=== PATIENT | male | born 1955 ===

== ENCOUNTER 2017-10-09 03:08 | Inpatient (IN) | payer MEDICAID, MEDICARE ==
[2017-10-09 03:08] VITALS: PULSE 74
--- NOTE | 2017-10-09 03:14 | C.PDOC ---
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 No chest pain Time Seen by Provider: 10/09/17 03:13 History Per: EMS History/Exam Limitations: clinical condition Onset/Duration Of Symptoms: Hrs (4) Initiating Event: Other Quality: Dull Exacerbating Factor(s): Exertion Current Respiratory Medications: See Home Med List Severity: Severe Pain Scale Rating Of: 9 Associated Symptoms: Sweating, Anxiety. denies: Fever, Chills Reports Recently: Treated By A Physician Recent travel outside of the [place]: No Additional History Per: EMS, Family Past Medical History Reviewed: Historical Data, Nursing Documentation, Vital Signs Vital Signs: Last Vital Signs Temp Pulse 98 H 10/09/17 03:51 Resp 26 H 10/09/17 03:51 BP 153/75 H 10/09/17 03:51 Pulse Ox 100 10/09/17 03:59 - Medical History PMH: Atrial Fibrillation, Cardia Arrhythmia, Diabetes, HTN, Hypercholesterolemia Denies: Anemia, Arthritis, Asthma, Crohn's Disease, Diverticulitis, Emphysema , Fractures, Gastritis, Gall Bladder Disease, HIV, Hyperthyroidism, Hypothyroidism, Kidney Stones, Osteoporosis, Pancreatitis, Chronic Kidney Disease, Rheumatoid Arthritis, Sickle Cell Disease, Sexually Transmitted Disease Family History: States: No Known Family Hx - Social History Hx Tobacco Use: No Hx Alcohol Use: No Hx Substance Use: No - Immunization History Hx Tetanus Toxoid Vaccination: No Hx Influenza Vaccination: Yes Hx Pneumococcal Vaccination: No Review Of Systems Review Of Systems: ROS cannot be obtained secondary to pt's inabilty to answer questions. Physical Exam - Physical Exam Appears: In Acute Distress Skin: Diaphoretic, Pale Head: Normacephalic Eye(s): bilateral: Normal Inspection Oral Mucosa: Dry Neck: Supple Chest: Symmetrical Cardiovascular: Rhythm Regular Respiratory: Decreased Breath Sounds, Rales, Rhonchi, No Wheezing Gastrointestinal/Abdominal: Soft, No Tenderness, Distention Back: Normal Inspection Extremity: Pedal Edema (trace , r leg), Other (left bka) Extremity: Left: Other (bka) Pulses: Right Dorsalis Pedis: Normal Neurological/Psych: Slow To Respond With Command, Other (agitated, ) Gait: Unable To Assess ED Course And Treatment - Laboratory Results Result Diagrams: 10/09/17 03:29 10/09/17 03:29 ECG: Interpreted By Me, Viewed By Me ECG Rhythm: Atrial Fibrillation (104), ST/T Changes O2 Sat by Pulse Oximetry: 100 Pulse Ox Interpretation: Normal (on bipap) - Radiology CXR: Interpreted by Me, Viewed By Me CXR Interpretation: Yes: Cardiomegaly, Other (acute pulm edema, rul mass) Progress Note: 3:50 am changed bipap settings to 50%, 22 resp 14. 3:[address] leyva, icu, will come and see the pt in the ed. 4:35 AM Pt feels better. speaksandra hill 2-3 word sentences Critical Care Time - Critical Care Note Total Time (in mins): 30 Documented critical care: time excludes all time spent performing seperately billable procedures. Disposition Discussed With Dr.: Vincent Guajardo Jr. Comment: accepted the pt on his service and took over the care at 4:39AM Doctor Will See Patient In The: ED Counseled Patient/Family Regarding: Studies Performed, Diagnosis - Disposition Disposition: HOSPITALIZED Disposition Time: 03:14 Condition: CRITICAL - POA Present On Arrival: Poor Glycemic Control - Clinical Impression Clinical Impression: Respiratory distress, Diabetes mellitus, Atrial fibrillation, Acute pulmonary edema Decision To Admit - Pt Status Changed To: Hospital Disposition Of: Inpatient - Admit Certification Admit to Inpatient:: After my assessment, the patient will require hospitalization for at least two midnights. This is because of the severity of symptoms shown, intensity of services needed, and/or the medical risk in this patient being treated as an outpatient. - InPatient: Physician Admission Certification: I certify that this patient requires 2 or more midnights of care for the following reason:: After my assessment, the patient will require hospitalization for at least two midnights. This is because of the severity of symptoms shown, intensity of services needed, and/or the medical risk in this patient being treated as an outpatient. - . Bed Request Type: ICU Admitting Physician: Vincent Guajardo Jr. Patient Diagnosis: Respiratory distress, Diabetes mellitus, Atrial fibrillation, Acute pulmonary edema
[2017-10-09 03:15] VITALS: BMI 36.6
[2017-10-09] MEDS: Albuterol-Ipratrop 3 mg / 0.5 (3 ml) UD IH SCH (03:20)
[2017-10-09] MEDS ORDERED: Albuterol-Ipratrop 3 mg / 0.5 (3 ml) UD ONE (03:24)
[2017-10-09 03:36] LABS: BASO # 0.1 K/uL (0.0-0.2); BASO % 0.9 % (0.0-2.0); EOS # 0.4 K/uL (0.0-0.7); EOS % 3.4 % (0.0-4.0); LYMPH # 2.8 K/uL (1.0-4.3); LYMPH % 23.8 % (20.0-40.0); MEAN CELL VOLUME 88.1 fL (80.0-94.0); MEAN CORPUSCULAR HEMOGLOBIN 28.4 pg (27.0-31.0); MEAN CORPUSCULAR HGB CONC 32.2 g/dL (33.0-37.0); MEAN PLATELET VOLUME 7.8 fL (7.2-11.7); MONO # 0.9 K/uL (0.0-0.8); MONO % 7.9 % (0.0-10.0); NEUT # 7.6 K/uL (1.8-7.0); NRBC % 0.2 % (0.0-2.0); RBC 3.51 Mil/uL (4.40-5.90); RED CELL DISTRIBUTION WIDTH 15.5 % (11.5-14.5); WHITE BLOOD COUNT 11.8 K/uL (4.8-10.8)
[2017-10-09 03:40] LABS: PROTHROMBIN TIME 10.9 SECONDS (9.7-12.2)
[2017-10-09 03:45] LABS: ARTERIAL BLOOD GAS O2 SAT 98.3 % (95-98); ARTERIAL BLOOD GAS PCO2 73 mm/Hg (35-45); ARTERIAL BLOOD GAS PH 7.11 (7.35-7.45); ARTERIAL BLOOD GAS PO2 334 mm/Hg (80-100); ARTERIAL BLOOD GAS TCO2 25.4 mmol/L (22-28)
[2017-10-09 03:48] LABS: ALBUMIN 3.7 g/dL (3.5-5.0); ALT/SGPT 36 U/L (21-72); AST/SGOT 41 U/L (17-59); BLOOD UREA NITROGEN 25 mg/dL (9-20); CALCIUM 8.3 mg/dl (8.6-10.4); GFR AFRICAN-AMERICAN 53; GFR NON-AFRICAN AMERICAN 44
[2017-10-09 03:59] LABS: B-TYPE NATRIURETIC PEPTIDE 1840 pg/mL (0-900)
--- NOTE | 2017-10-09 05:04 | CP.PCM.CON ---
History of Present Illness - History of Present Illness History of Present Illness: 62 y/o male with h/o ?CAD,DM,HTN,Hyperlipidemia ,left BKA and atrial fibrillation brought to ER with c/o worsening difficulty breathing and mild chest discomfort since 8:00pm yesterday.In ER patient was placed on BIPAP with improvement in symptoms. History intubation about 6 months ago. Denies nausea,vomiting,diaphoresis,dizziness. c/o worsening right leg swelling x 2 days H/O abnormal stress test and Cardiac cath.patient / does not know results. history from patient and via produce assistant Review of Systems - Review of Systems Systems not reviewed;Unavailable: Respiratory Distress - Constitutional Constitutional: absent: Chills, Fever, Sleep Apnea, Weight Loss - EENT Eyes: absent: Blurred Vision, Pain Ears: absent: Decreased Hearing, Dizziness Nose/Mouth/Throat: absent: Nasal Congestion, Hoarsness, Sore Throat - Cardiovascular Cardiovascular: Chest Pain, Dyspnea, Edema. absent: Claudication, Diaphoresis - Respiratory Respiratory: Dyspnea, Snoring. absent: Cough - Gastrointestinal Gastrointestinal: Change in Bowel Habits. absent: Nausea, Vomiting - Genitourinary Genitourinary: absent: Dysuria, Hematuria - Musculoskeletal Additional comments: left BKA about 2 yrs ago - Integumentary Integumentary: absent: Rash, Sores - Neurological Neurological: absent: Dizziness, Weakness - Endocrine Endocrine: absent: Fatigue, Palpitations - Hematologic/Lymphatic Hematologic: absent: Easy Bleeding Past Patient History - Tetanus Immunizations Tetanus Immunization: Unknown - Past Medical History & Family History Past Medical History?: Yes - Past Social History Smoking Status: Former Smoker Drugs: Denies - CARDIAC Hx Atrial Fibrillation: Yes Hx Cardia Arrhythmia: Yes Hx Hypercholesterolemia: Yes Hx Hypertension: Yes - PULMONARY Hx Asthma: No Hx Emphysema: No - NEUROLOGICAL Hx Neurological Disorder: No - HEENT Hx HEENT Problems: No Hx Blind: No Hx Cataracts: No Hx Deafness: No Hx Difficulty Chewing: No Hx Epistaxis: No Hx Glaucoma: No Hx Macular Degeneration: No - RENAL Hx Chronic Kidney Disease: No Hx Kidney Stones: No - ENDOCRINE/METABOLIC Hx Hyperthyroidism: No Hx Hypothyroidism: No - HEMATOLOGICAL/ONCOLOGICAL Hx Anemia: No Hx Human Immunodeficiency Virus (HIV): No Hx Sickle Cell Disease: No - INTEGUMENTARY Hx Dermatological Problems: Yes Hx Basil Cell: No Hx Richard: No Hx Cellulitis: Yes Hx Eczema: No Hx Melanoma: No Hx Psoriasis: No Hx Squamous Cell: No - MUSCULOSKELETAL/RHEUMATOLOGICAL Hx Arthritis: No Hx Fractures: No Hx Osteoporosis: No Hx Rheumatoid Arthritis: No - GASTROINTESTINAL Hx Crohn's Disease: No Hx Diverticulitis: No Hx Gall Bladder Disease: No Hx Gastritis: No Hx Pancreatitis: No - GENITOURINARY/GYNECOLOGICAL Hx Sexually Transmitted Disorders: No - PSYCHIATRIC Hx Substance Use: No - SURGICAL HISTORY Hx Surgeries: Yes (left bka) - ANESTHESIA Hx Anesthesia: Yes Hx Anesthesia Reactions: No Hx Malignant Hyperthermia: No Meds Allergies/Adverse Reactions: Allergies Allergy/AdvReac Type Severity Reaction Status Date / Time No Known Allergies Allergy Verified 10/09/17 03:23 Physical Exam - Constitutional Appears: No Acute Distress Additional comments: on BIPAP ,answers all questions - Head Exam Head Exam: ATRAUMATIC, NORMAL INSPECTION, NORMOCEPHALIC - Eye Exam Eye Exam: EOMI Pupil Exam: NORMAL ACCOMODATION, PERRL - ENT Exam ENT Exam: Mucous Membranes Moist - Neck Exam Neck exam: Positive for: Full Rom, Normal Inspection. Negative for: Tenderness - Respiratory Exam Respiratory Exam: Rales Additional comments: decreased airentry in bases - Cardiovascular Exam Cardiovascular Exam: Irregular Rhythm. absent: JVD - GI/Abdominal Exam GI & Abdominal Exam: Normal Bowel Sounds, Soft. absent: Tenderness - Extremities Exam Extremities exam: Positive for: pedal pulses present. Negative for: calf tenderness Additional comments: left BKA right leg swelling+ Right DP pulse 2+ - Back Exam Back exam: NORMAL INSPECTION - Neurological Exam Neurological exam: Alert, CN II-XII Intact, Oriented x3 - Psychiatric Exam Psychiatric exam: Normal Affect Results - Vital Signs Recent Vital Signs: Last Vital Signs Temp 97.8 F 10/09/17 04:54 Pulse 106 H 10/09/17 04:54 Resp 24 10/09/17 04:54 BP 129/68 10/09/17 04:54 Pulse Ox 100 10/09/17 04:54 - Labs Result Diagrams: 10/09/17 03:29 10/09/17 03:29 Labs: Laboratory Results - last 24 hr 10/09/17 10/09/17 10/09/17 03:17 03:29 03:29 WBC 11.8 H RBC 3.51 L Hgb 10.0 L D Hct 30.9 L MCV 88.1 D MCH 28.4 MCHC 32.2 L RDW 15.5 H Plt Count 262 MPV 7.8 Neut % (Auto) 64.0 Lymph % (Auto) 23.8 [place] % (Auto) 7.9 Eos % (Auto) 3.4 Baso % (Auto) 0.9 Neut # (Auto) 7.6 H Lymph # (Auto) 2.8 [place] # (Auto) 0.9 H Eos # (Auto) 0.4 Baso # (Auto) 0.1 PT 10.9 INR 1.0 APTT 40 H Puncture Site pCO2 pO2 HCO3 ABG pH ABG Total CO2 ABG O2 Saturation ABG Base Excess Tong Test ABG Potassium A-a O2 Difference Respiratory Index Glucose Lactate Vent Mode Mechanical Rate FiO2 Inspiratory BiPAP Expiratory BiPAP Crit Value Called To Crit Value Called By Crit Value Read Back Blood Gas Notified Time Sodium Potassium Chloride Carbon Dioxide Anion Gap BUN Creatinine Est GFR ( Amer) Est GFR (Non-Af Amer) POC Glucose (mg/dL) 277 H Random Glucose Calcium Magnesium Total Bilirubin AST ALT Alkaline Phosphatase Troponin I NT-Pro-B Natriuret Pep Total Protein Albumin Globulin Albumin/Globulin Ratio Arterial Blood Potassium 10/09/17 10/09/17 03:29 03:30 WBC RBC Hgb Hct MCV MCH MCHC RDW Plt Count MPV Neut % (Auto) Lymph % (Auto) [place] % (Auto) Eos % (Auto) Baso % (Auto) Neut # (Auto) Lymph # (Auto) [place] # (Auto) Eos # (Auto) Baso # (Auto) PT INR APTT Puncture Site R brach pCO2 73 H* pO2 334 H HCO3 19.0 L ABG pH 7.11 L* ABG Total CO2 25.4 ABG O2 Saturation 98.3 H ABG Base Excess -7.7 L Tong Test Na ABG Potassium 5.0 A-a O2 Difference 288.0 Respiratory Index 0.9 Glucose 336 H Lactate 0.7 Vent Mode Bipap Mechanical Rate 18 FiO2 100.0 Inspiratory BiPAP 14 Expiratory BiPAP 7 Crit Value Called To Dr colin Crit Value Called By Delilah villa Crit Value Read Back Y Blood Gas Notified Time 347 Sodium 147 141.0 Potassium 5.2 Chloride 111 H 110.0 H Carbon Dioxide 22 Anion Gap 20 BUN 25 H Creatinine 1.6 H Est GFR ( Amer) 53 Est GFR (Non-Af Amer) 44 POC Glucose (mg/dL) Random Glucose 341 H Calcium 8.3 L Magnesium 1.9 Total Bilirubin 0.3 AST 41 ALT 36 Alkaline Phosphatase 136 H Troponin I < 0.0120 NT-Pro-B Natriuret Pep 1840 H Total Protein 7.5 Albumin 3.7 Globulin 3.8 Albumin/Globulin Ratio 1.0 Arterial Blood Potassium 5.0 - EKG Data EKG Interpreted by: Myself - Imaging and Cardiology Chest x-ray Status: Image reviewed by me Assessment & Plan - Assessment and Plan (Free Text) Assessment: 1.Hypercapnic Respiratory failure/Acute Pulmonary edema/HTN r/o OHS Continue BIPAP diuretics,ACEI,beta blockers 2.Hyperlipidemia on meds 3.DM uncontrolled continue meds. 4.Anemia 5.Renal insufficiency
[2017-10-09 05:20] LABS: SQUAMOUS EPITHIAL < 1 /hpf (0-5); URINE BILIRUBIN NEGATIVE (NEGATIVE); URINE CLARITY Clear (Clear); URINE COLOR Straw (YELLOW); URINE GLUCOSE (UA) 2+ mg/dL (Normal); URINE LEUKOCYTE ESTERASE NEG Leu/uL (Negative); URINE PROTEIN 3+ mg/dL (NEGATIVE); URINE UROBILINOGEN NORMAL mg/dL (0.2-1.0)
[2017-10-09 05:38] LABS: URINE BLOOD NEGATIVE (NEGATIVE)
[2017-10-09 05:45] LABS: ARTERIAL BLOOD GAS HCO3 19.6 mmol/L (21-28); ARTERIAL BLOOD GAS HEMOGLOBIN 9.1 g/dL (11.7-17.4); ARTERIAL BLOOD GAS O2 SAT 95.8 % (95-98); ARTERIAL BLOOD GAS PCO2 54 mm/Hg (35-45); ARTERIAL BLOOD GAS PO2 78 mm/Hg (80-100); ARTERIAL BLOOD GAS TCO2 22.8 mmol/L (22-28)
--- NOTE | 2017-10-09 06:06 | CP.PCM.HP ---
History of Present Illness - History of Present Illness History of Present Illness: H&P: 62 year old male with past medical history of DM, CAD, HTN, HLD, a fib presented to hospital for shortness of breath and mild chest discomfort that has been ongoing for about 1 week. Patient complains of a productive cough with greenish sputum and subjective F/C. Patient states chest discomfort began yesterday when he was walking and dissipated after resting. Denied having any abd pain, N/V/D/C, LE swelling. On admission, ABG showed respiratory acidosis with pH of 7.11. Patient was placed on BiPAP for respiratory distress and was admitted to ICU. PMhx: stated above Sx: Left BKA Social: former smoker, denies ETOH or drug use Meds: see LIZETH NKDA Present on Admission - Present on Admission Any Indicators Present on Admission: No Review of Systems - Review of Systems Systems not reviewed;Unavailable: Respiratory Distress - Constitutional Constitutional: Chills, Fever - EENT Eyes: absent: Blurred Vision, Change in Vision Nose/Mouth/Throat: absent: Nasal Congestion, Nasal Discharge, Sore Throat - Cardiovascular Cardiovascular: Chest Pain, Chest Pain with Activity, Dyspnea. absent: Chest Pain at Rest, Leg Edema, Pedal Edema - Respiratory Respiratory: Dyspnea, Dyspnea on Exertion. absent: Cough, Wheezing, Chest Congestion - Gastrointestinal Gastrointestinal: absent: Abdominal Pain, Bloating, Constipation, Diarrhea, Nausea, Vomiting - Genitourinary Genitourinary: absent: Dysuria - Musculoskeletal Musculoskeletal: absent: Back Pain, Numbness, Tingling - Integumentary Integumentary: absent: Acne, Lesions, Rash, Wounds - Neurological Neurological: absent: Syncope, Weakness - Psychiatric Psychiatric: absent: Anxiety, Depression Past Patient History - Tetanus Immunizations Tetanus Immunization: Unknown - Past Medical History & Family History Past Medical History?: Yes - Past Social History Smoking Status: Former Smoker Drugs: Denies - CARDIAC Hx Atrial Fibrillation: Yes Hx Cardia Arrhythmia: Yes Hx Hypercholesterolemia: Yes Hx Hypertension: Yes - PULMONARY Hx Asthma: No Hx Emphysema: No - NEUROLOGICAL Hx Neurological Disorder: No - HEENT Hx HEENT Problems: No Hx Blind: No Hx Cataracts: No Hx Deafness: No Hx Difficulty Chewing: No Hx Epistaxis: No Hx Glaucoma: No Hx Macular Degeneration: No - RENAL Hx Chronic Kidney Disease: No Hx Kidney Stones: No - ENDOCRINE/METABOLIC Hx Hyperthyroidism: No Hx Hypothyroidism: No - HEMATOLOGICAL/ONCOLOGICAL Hx Anemia: No Hx Human Immunodeficiency Virus (HIV): No Hx Sickle Cell Disease: No - INTEGUMENTARY Hx Dermatological Problems: Yes Hx Basil Cell: No Hx Richard: No Hx Cellulitis: Yes Hx Eczema: No Hx Melanoma: No Hx Psoriasis: No Hx Squamous Cell: No - MUSCULOSKELETAL/RHEUMATOLOGICAL Hx Arthritis: No Hx Fractures: No Hx Osteoporosis: No Hx Rheumatoid Arthritis: No - GASTROINTESTINAL Hx Crohn's Disease: No Hx Diverticulitis: No Hx Gall Bladder Disease: No Hx Gastritis: No Hx Pancreatitis: No - GENITOURINARY/GYNECOLOGICAL Hx Sexually Transmitted Disorders: No - PSYCHIATRIC Hx Substance Use: No - SURGICAL HISTORY Hx Surgeries: Yes (left bka) - ANESTHESIA Hx Anesthesia: Yes Hx Anesthesia Reactions: No Hx Malignant Hyperthermia: No Meds Allergies/Adverse Reactions: Allergies Allergy/AdvReac Type Severity Reaction Status Date / Time No Known Allergies Allergy Verified 10/09/17 03:23 Physical Exam - Constitutional Appears: No Acute Distress - Head Exam Head Exam: ATRAUMATIC, NORMOCEPHALIC - ENT Exam ENT Exam: Mucous Membranes Moist - Respiratory Exam Respiratory Exam: Clear to Auscultation Bilateral. absent: Accessory Muscle Use , Rales, Rhonchi, Wheezes, Respiratory Distress Additional comments: on BIPAP - Cardiovascular Exam Cardiovascular Exam: REGULAR RHYTHM, +S1, +S2 - GI/Abdominal Exam GI & Abdominal Exam: Normal Bowel Sounds, Soft. absent: Distended, Firm, Guarding, Rigid, Tenderness - Extremities Exam Extremities exam: Negative for: pedal edema, tenderness Additional comments: left BKA - Neurological Exam Neurological exam: Alert, Oriented x3 - Psychiatric Exam Psychiatric exam: Normal Affect, Normal Mood - Skin Skin Exam: Dry, Intact, Normal Color, Warm Results - Vital Signs Recent Vital Signs: Last Vital Signs Temp 97.6 F 10/09/17 04:59 Pulse 87 10/09/17 06:02 Resp 24 10/09/17 04:54 BP 129/68 10/09/17 04:54 Pulse Ox 98 10/09/17 04:58 - Labs Result Diagrams: 10/09/17 03:29 10/09/17 03:29 Labs: Laboratory Results - last 24 hr 10/09/17 10/09/17 10/09/17 03:15 03:17 03:29 WBC 11.8 H RBC 3.51 L Hgb 10.0 L D Hct 30.9 L MCV 88.1 D MCH 28.4 MCHC 32.2 L RDW 15.5 H Plt Count 262 MPV 7.8 Neut % (Auto) 64.0 Lymph % (Auto) 23.8 [place] % (Auto) 7.9 Eos % (Auto) 3.4 Baso % (Auto) 0.9 Neut # (Auto) 7.6 H Lymph # (Auto) 2.8 [place] # (Auto) 0.9 H Eos # (Auto) 0.4 Baso # (Auto) 0.1 PT INR APTT Puncture Site pCO2 pO2 HCO3 ABG pH ABG Total CO2 ABG O2 Saturation ABG Base Excess ABG Hemoglobin ABG Carboxyhemoglobin POC ABG HHb (Measured) ABG Methemoglobin Tong Test ABG Potassium A-a O2 Difference Respiratory Index Hgb O2 Saturation Glucose Lactate Vent Mode Mechanical Rate FiO2 Inspiratory BiPAP Expiratory BiPAP Crit Value Called To Crit Value Called By Crit Value Read Back Blood Gas Notified Time Sodium Potassium Chloride Carbon Dioxide Anion Gap BUN Creatinine Est GFR ( Amer) Est GFR (Non-Af Amer) POC Glucose (mg/dL) 277 H Random Glucose Calcium Magnesium Total Bilirubin AST ALT Alkaline Phosphatase Troponin I NT-Pro-B Natriuret Pep Total Protein Albumin Globulin Albumin/Globulin Ratio Arterial Blood Potassium Urine Color Straw Urine Clarity Clear Urine pH 5.0 Ur Specific [place] 1.012 Urine Protein 3+ H Urine Glucose (UA) 2+ H Urine Ketones Negative Urine Blood Negative Urine Nitrate Negative Urine Bilirubin Negative Urine Urobilinogen Normal Ur Leukocyte Esterase Neg Urine WBC (Auto) < 1 Urine RBC (Auto) 1 Ur Squamous Epith Cells < 1 Hyaline Casts 3-5 H 18 18 10/09/17 03:29 03:29 03:30 WBC RBC Hgb Hct MCV MCH MCHC RDW Plt Count MPV Neut % (Auto) Lymph % (Auto) [place] % (Auto) Eos % (Auto) Baso % (Auto) Neut # (Auto) Lymph # (Auto) [place] # (Auto) Eos # (Auto) Baso # (Auto) PT 10.9 INR 1.0 APTT 40 H Puncture Site R brach pCO2 73 H* pO2 334 H HCO3 19.0 L ABG pH 7.11 L* ABG Total CO2 25.4 ABG O2 Saturation 98.3 H ABG Base Excess -7.7 L ABG Hemoglobin ABG Carboxyhemoglobin POC ABG HHb (Measured) ABG Methemoglobin Tong Test Na ABG Potassium 5.0 A-a O2 Difference 288.0 Respiratory Index 0.9 Hgb O2 Saturation Glucose 336 H Lactate 0.7 Vent Mode Bipap Mechanical Rate 18 FiO2 100.0 Inspiratory BiPAP 14 Expiratory BiPAP 7 Crit Value Called To Dr colin Crit Value Called By Delilah villa Crit Value Read Back Y Blood Gas Notified Time 347 Sodium 147 141.0 Potassium 5.2 Chloride 111 H 110.0 H Carbon Dioxide 22 Anion Gap 20 BUN 25 H Creatinine 1.6 H Est GFR ( Amer) 53 Est GFR (Non-Af Amer) 44 POC Glucose (mg/dL) Random Glucose 341 H Calcium 8.3 L Magnesium 1.9 Total Bilirubin 0.3 AST 41 ALT 36 Alkaline Phosphatase 136 H Troponin I < 0.0120 NT-Pro-B Natriuret Pep 1840 H Total Protein 7.5 Albumin 3.7 Globulin 3.8 Albumin/Globulin Ratio 1.0 Arterial Blood Potassium 5.0 Urine Color Urine Clarity Urine pH Ur Specific [place] Urine Protein Urine Glucose (UA) Urine Ketones Urine Blood Urine Nitrate Urine Bilirubin Urine Urobilinogen Ur Leukocyte Esterase Urine WBC (Auto) Urine RBC (Auto) Ur Squamous Epith Cells Hyaline Casts 10/09/17 05:38 WBC RBC Hgb Hct MCV MCH MCHC RDW Plt Count MPV Neut % (Auto) Lymph % (Auto) [place] % (Auto) Eos % (Auto) Baso % (Auto) Neut # (Auto) Lymph # (Auto) [place] # (Auto) Eos # (Auto) Baso # (Auto) PT INR APTT Puncture Site Rb pCO2 54 H pO2 78 L HCO3 19.6 L ABG pH 7.20 L ABG Total CO2 22.8 ABG O2 Saturation 95.8 ABG Base Excess -6.8 L ABG Hemoglobin 9.1 L ABG Carboxyhemoglobin 1.0 POC ABG HHb (Measured) 4.1 ABG Methemoglobin 0.8 Tong Test Na ABG Potassium A-a O2 Difference 211.0 Respiratory Index 2.7 Hgb O2 Saturation 94.1 L Glucose Lactate Vent Mode Bipap Mechanical Rate FiO2 50.0 Inspiratory BiPAP 14 Expiratory BiPAP 7 Crit Value Called To Crit Value Called By Crit Value Read Back Blood Gas Notified Time Sodium Potassium Chloride Carbon Dioxide Anion Gap BUN Creatinine Est GFR ( Amer) Est GFR (Non-Af Amer) POC Glucose (mg/dL) Random Glucose Calcium Magnesium Total Bilirubin AST ALT Alkaline Phosphatase Troponin I NT-Pro-B Natriuret Pep Total Protein Albumin Globulin Albumin/Globulin Ratio Arterial Blood Potassium Urine Color Urine Clarity Urine pH Ur Specific [place] Urine Protein Urine Glucose (UA) Urine Ketones Urine Blood Urine Nitrate Urine Bilirubin Urine Urobilinogen Ur Leukocyte Esterase Urine WBC (Auto) Urine RBC (Auto) Ur Squamous Epith Cells Hyaline Casts Assessment & Plan - Assessment and Plan (Free Text) Assessment: Acute hypercarbic respiratory failure - CXR on admission showed bilateral effusions. Official report pending - Admitted to ICU - Currently on BiPAP with improving ABG - Pt was complaining of productive cough for 1 week. will check blood and sputum cultures and rapid flu - will consider starting pt on Abx prophylactically CAD - Will consult cardio, Dr. Turk - Echo ordered - Continue coreg, aspirin, statin and lisinopril - Will check serial trops and EKG. Initial trop was negative and EKG was normal CHF exacerbation - ProBNP on admission was 1840 - Pt received 60 mg IVP. Pt started on lasixs 40 mg IVP BID DM - Continue metformin 100 mg po bid - Accu checks ACHS - ISS - will check HgbA1c HTN - Continue lasixs 40 IVP BID, lisinopril 5 mg po qd HLD - continue statin therapy - lipid panel ordered Afib - Pts home medication includes lopressor. Currently pt placed on coreg. - Previously pt was on coumadin for anticoag but unsure why it was d/migue. Continue aspirin for now - CHADSVASC score of 4. Prophyalxis - SCDs - Heparin - protonix - Date & Time Date: 10/09/17 Time: 07:41
[2017-10-09] MEDS ORDERED: (Novolin R) Insulin Human Regular 100 units/ml vial SC SCH (07:30)
--- NOTE | 2017-10-09 08:07 | RAD ---
HISTORY: SOB COMPARISON: Chest x-ray 02/25/2014 TECHNIQUE: Chest one view . FINDINGS: LUNGS: Focal airspace opacity right lung base. Moderate pulmonary vascular congestion. PLEURA: No pleural effusion is identified. CARDIOVASCULAR: Heart size is within normal limits. OSSEOUS STRUCTURES: Degenerative changes noted of the spine. VISUALIZED UPPER ABDOMEN: Unremarkable. OTHER FINDINGS: None. IMPRESSION: Focal airspace opacity right lung base, likely infectious/ inflammatory process. Follow-up to resolution is advised. . Moderate pulmonary vascular congestion.
[2017-10-09] MEDS: Pantoprazole 40 mg EC Tab PO SCH (09:58)
[2017-10-09] MEDS ORDERED: Enoxaparin 40 mg Syringe SC SCH (10:00)
[2017-10-09 11:53] LABS: HDL CHOLESTEROL 29 mg/dL (30-70)
[2017-10-09 12:05] LABS: LDL CHOLESTEROL < 30 mg/dL (0-129)
[2017-10-09 12:16] LABS: CK-MB 3.45 ng/mL (0.0-3.38)
[2017-10-09] MEDS: (Novolog) Insulin Aspart, Recombinant 100 u/ml 10 ml vial SC SCH ×3 (12:16→21:25)
[2017-10-09 13:14] LABS: TROPONIN I 0.758 ng/mL (0.00-0.120)
--- NOTE | 2017-10-09 13:24 | CP.PCM.CON ---
History of Present Illness - History of Present Illness History of Present Illness: patient seen/examined. full consutl to follow. will need ecjho to assess LV function. diuresis. Past Patient History - Tetanus Immunizations Tetanus Immunization: Unknown - Past Medical History & Family History Past Medical History?: Yes - Past Social History Smoking Status: Former Smoker Drugs: Denies - CARDIAC Hx Atrial Fibrillation: Yes Hx Cardia Arrhythmia: Yes Hx Hypercholesterolemia: Yes Hx Hypertension: Yes - PULMONARY Hx Asthma: No Hx Emphysema: No - NEUROLOGICAL Hx Neurological Disorder: No - HEENT Hx HEENT Problems: No Hx Blind: No Hx Cataracts: No Hx Deafness: No Hx Difficulty Chewing: No Hx Epistaxis: No Hx Glaucoma: No Hx Macular Degeneration: No - RENAL Hx Chronic Kidney Disease: No Hx Kidney Stones: No - ENDOCRINE/METABOLIC Hx Hyperthyroidism: No Hx Hypothyroidism: No - HEMATOLOGICAL/ONCOLOGICAL Hx Anemia: No Hx Human Immunodeficiency Virus (HIV): No Hx Sickle Cell Disease: No - INTEGUMENTARY Hx Dermatological Problems: Yes Hx Basil Cell: No Hx Richard: No Hx Cellulitis: Yes Hx Eczema: No Hx Melanoma: No Hx Psoriasis: No Hx Squamous Cell: No - MUSCULOSKELETAL/RHEUMATOLOGICAL Hx Arthritis: No Hx Fractures: No Hx Osteoporosis: No Hx Rheumatoid Arthritis: No - GASTROINTESTINAL Hx Crohn's Disease: No Hx Diverticulitis: No Hx Gall Bladder Disease: No Hx Gastritis: No Hx Pancreatitis: No - GENITOURINARY/GYNECOLOGICAL Hx Sexually Transmitted Disorders: No - PSYCHIATRIC Hx Substance Use: No - SURGICAL HISTORY Hx Surgeries: Yes (left bka) - ANESTHESIA Hx Anesthesia: Yes Hx Anesthesia Reactions: No Hx Malignant Hyperthermia: No Meds Allergies/Adverse Reactions: Allergies Allergy/AdvReac Type Severity Reaction Status Date / Time No Known Allergies Allergy Verified 10/09/17 03:23 - Medications Medications: Current Medications Aspirin (Ecotrin) 81 mg PO DAILY [facility] Last Admin: 10/09/17 09:59 Dose: 81 mg Furosemide (Lasix) 40 mg IVP BID [facility] Last Admin: 10/09/17 09:58 Dose: 40 mg Heparin Sodium (Porcine) (Heparin) 5,000 units SC Q8 [facility] Insulin Aspart (Novolog) 0 unit SC ACHS [facility] PRN Reason: Protocol Last Admin: 10/09/17 12:16 Dose: 4 unit Metoprolol Tartrate (Lopressor) 25 mg PO BID [facility] Pantoprazole Sodium (Protonix Ec Tab) 40 mg PO DAILY [facility] Last Admin: 10/09/17 09:58 Dose: 40 mg Rosuvastatin Calcium (Crestor) 10 mg PO HS [facility] Rosuvastatin Calcium (Crestor) 5 mg PO HS [facility] Results - Vital Signs Recent Vital Signs: Last Vital Signs Temp 96.3 F L 10/09/17 12:00 Pulse 69 10/09/17 13:00 Resp 19 10/09/17 13:00 BP 131/73 10/09/17 13:00 Pulse Ox 97 10/09/17 13:00 - Labs Result Diagrams: 10/09/17 03:29 10/09/17 03:29 Labs: Laboratory Results - last 24 hr 10/09/17 10/09/17 10/09/17 03:15 03:17 03:21 WBC RBC Hgb Hct MCV MCH MCHC RDW Plt Count MPV Neut % (Auto) Lymph % (Auto) Shannon % (Auto) Eos % (Auto) Baso % (Auto) Neut # (Auto) Lymph # (Auto) Shannon # (Auto) Eos # (Auto) Baso # (Auto) PT INR APTT Puncture Site pCO2 pO2 HCO3 ABG pH ABG Total CO2 ABG O2 Saturation ABG Base Excess ABG Hemoglobin ABG Carboxyhemoglobin POC ABG HHb (Measured) ABG Methemoglobin Tong Test ABG Potassium A-a O2 Difference Respiratory Index Hgb O2 Saturation Glucose Lactate Vent Mode Mechanical Rate FiO2 Inspiratory BiPAP Expiratory BiPAP Crit Value Called To Crit Value Called By Crit Value Read Back Blood Gas Notified Time Sodium Potassium Chloride Carbon Dioxide Anion Gap BUN Creatinine Est GFR ( Amer) Est GFR (Non-Af Amer) POC Glucose (mg/dL) 277 H Random Glucose Hemoglobin A1c Calcium Magnesium Total Bilirubin AST ALT Alkaline Phosphatase Total Creatine Kinase CK-MB (Mass) Troponin I NT-Pro-B Natriuret Pep Total Protein Albumin Globulin Albumin/Globulin Ratio Triglycerides Cholesterol LDL Cholesterol Direct HDL Cholesterol TSH 3rd Generation Arterial Blood Potassium Urine Color Straw Urine Clarity Clear Urine pH 5.0 Ur Specific [place] 1.012 Urine Protein 3+ H Urine Glucose (UA) 2+ H Urine Ketones Negative Urine Blood Negative Urine Nitrate Negative Urine Bilirubin Negative Urine Urobilinogen Normal Ur Leukocyte Esterase Neg Urine WBC (Auto) < 1 Urine RBC (Auto) 1 Ur Squamous Epith Cells < 1 Hyaline Casts 3-5 H Influenza Typ A,B (EIA) Blood Type O POSITIVE Antibody Screen Negative 10/09/17 10/09/17 10/09/17 03:29 03:29 03:29 WBC 11.8 H RBC 3.51 L Hgb 10.0 L D Hct 30.9 L MCV 88.1 D MCH 28.4 MCHC 32.2 L RDW 15.5 H Plt Count 262 MPV 7.8 Neut % (Auto) 64.0 Lymph % (Auto) 23.8 Shannon % (Auto) 7.9 Eos % (Auto) 3.4 Baso % (Auto) 0.9 Neut # (Auto) 7.6 H Lymph # (Auto) 2.8 Shannon # (Auto) 0.9 H Eos # (Auto) 0.4 Baso # (Auto) 0.1 PT 10.9 INR 1.0 APTT 40 H Puncture Site pCO2 pO2 HCO3 ABG pH ABG Total CO2 ABG O2 Saturation ABG Base Excess ABG Hemoglobin ABG Carboxyhemoglobin POC ABG HHb (Measured) ABG Methemoglobin Tong Test ABG Potassium A-a O2 Difference Respiratory Index Hgb O2 Saturation Glucose Lactate Vent Mode Mechanical Rate FiO2 Inspiratory BiPAP Expiratory BiPAP Crit Value Called To Crit Value Called By Crit Value Read Back Blood Gas Notified Time Sodium 147 Potassium 5.2 Chloride 111 H Carbon Dioxide 22 Anion Gap 20 BUN 25 H Creatinine 1.6 H Est GFR ( Amer) 53 Est GFR (Non-Af Amer) 44 POC Glucose (mg/dL) Random Glucose 341 H Hemoglobin A1c Calcium 8.3 L Magnesium 1.9 Total Bilirubin 0.3 AST 41 ALT 36 Alkaline Phosphatase 136 H Total Creatine Kinase CK-MB (Mass) Troponin I < 0.0120 NT-Pro-B Natriuret Pep 1840 H Total Protein 7.5 Albumin 3.7 Globulin 3.8 Albumin/Globulin Ratio 1.0 Triglycerides Cholesterol LDL Cholesterol Direct HDL Cholesterol TSH 3rd Generation Arterial Blood Potassium Urine Color Urine Clarity Urine pH Ur Specific [place] Urine Protein Urine Glucose (UA) Urine Ketones Urine Blood Urine Nitrate Urine Bilirubin Urine Urobilinogen Ur Leukocyte Esterase Urine WBC (Auto) Urine RBC (Auto) Ur Squamous Epith Cells Hyaline Casts Influenza Typ A,B (EIA) Blood Type Antibody Screen 10/09/17 10/09/17 10/09/17 03:30 05:38 06:28 WBC RBC Hgb Hct MCV MCH MCHC RDW Plt Count MPV Neut % (Auto) Lymph % (Auto) Shannon % (Auto) Eos % (Auto) Baso % (Auto) Neut # (Auto) Lymph # (Auto) Shannon # (Auto) Eos # (Auto) Baso # (Auto) PT INR APTT Puncture Site R brach Rb pCO2 73 H* 54 H pO2 334 H 78 L HCO3 19.0 L 19.6 L ABG pH 7.11 L* 7.20 L ABG Total CO2 25.4 22.8 ABG O2 Saturation 98.3 H 95.8 ABG Base Excess -7.7 L -6.8 L ABG Hemoglobin 9.1 L ABG Carboxyhemoglobin 1.0 POC ABG HHb (Measured) 4.1 ABG Methemoglobin 0.8 Tong Test Na Na ABG Potassium 5.0 A-a O2 Difference 288.0 211.0 Respiratory Index 0.9 2.7 Hgb O2 Saturation 94.1 L Glucose 336 H Lactate 0.7 Vent Mode Bipap Bipap Mechanical Rate 18 FiO2 100.0 50.0 Inspiratory BiPAP 14 14 Expiratory BiPAP 7 7 Crit Value Called To Dr colin Crit Value Called By Delilah villa Crit Value Read Back Y Blood Gas Notified Time 347 Sodium 141.0 Potassium Chloride 110.0 H Carbon Dioxide Anion Gap BUN Creatinine Est GFR ( Amer) Est GFR (Non-Af Amer) POC Glucose (mg/dL) Random Glucose Hemoglobin A1c 6.4 Calcium Magnesium Total Bilirubin AST ALT Alkaline Phosphatase Total Creatine Kinase CK-MB (Mass) Troponin I NT-Pro-B Natriuret Pep Total Protein Albumin Globulin Albumin/Globulin Ratio Triglycerides Cholesterol LDL Cholesterol Direct HDL Cholesterol TSH 3rd Generation Arterial Blood Potassium 5.0 Urine Color Urine Clarity Urine pH Ur Specific [place] Urine Protein Urine Glucose (UA) Urine Ketones Urine Blood Urine Nitrate Urine Bilirubin Urine Urobilinogen Ur Leukocyte Esterase Urine WBC (Auto) Urine RBC (Auto) Ur Squamous Epith Cells Hyaline Casts Influenza Typ A,B (EIA) Blood Type Antibody Screen 10/09/17 10/09/17 10/09/17 06:28 07:33 11:21 WBC RBC Hgb Hct MCV MCH MCHC RDW Plt Count MPV Neut % (Auto) Lymph % (Auto) Shannon % (Auto) Eos % (Auto) Baso % (Auto) Neut # (Auto) Lymph # (Auto) Shannon # (Auto) Eos # (Auto) Baso # (Auto) PT INR APTT Puncture Site pCO2 pO2 HCO3 ABG pH ABG Total CO2 ABG O2 Saturation ABG Base Excess ABG Hemoglobin ABG Carboxyhemoglobin POC ABG HHb (Measured) ABG Methemoglobin Tong Test ABG Potassium A-a O2 Difference Respiratory Index Hgb O2 Saturation Glucose Lactate Vent Mode Mechanical Rate FiO2 Inspiratory BiPAP Expiratory BiPAP Crit Value Called To Crit Value Called By Crit Value Read Back Blood Gas Notified Time Sodium Potassium Chloride Carbon Dioxide Anion Gap BUN Creatinine Est GFR ( Amer) Est GFR (Non-Af Amer) POC Glucose (mg/dL) 290 H 249 H Random Glucose Hemoglobin A1c Calcium Magnesium Total Bilirubin AST ALT Alkaline Phosphatase Total Creatine Kinase CK-MB (Mass) Troponin I NT-Pro-B Natriuret Pep Total Protein Albumin Globulin Albumin/Globulin Ratio Triglycerides Cholesterol LDL Cholesterol Direct HDL Cholesterol TSH 3rd Generation 2.61 Arterial Blood Potassium Urine Color Urine Clarity Urine pH Ur Specific [place] Urine Protein Urine Glucose (UA) Urine Ketones Urine Blood Urine Nitrate Urine Bilirubin Urine Urobilinogen Ur Leukocyte Esterase Urine WBC (Auto) Urine RBC (Auto) Ur Squamous Epith Cells Hyaline Casts Influenza Typ A,B (EIA) Blood Type Antibody Screen 10/09/17 10/09/17 10/09/17 11:37 11:37 11:37 WBC RBC Hgb Hct MCV MCH MCHC RDW Plt Count MPV Neut % (Auto) Lymph % (Auto) Shannon % (Auto) Eos % (Auto) Baso % (Auto) Neut # (Auto) Lymph # (Auto) Shannon # (Auto) Eos # (Auto) Baso # (Auto) PT INR APTT Puncture Site pCO2 pO2 HCO3 ABG pH ABG Total CO2 ABG O2 Saturation ABG Base Excess ABG Hemoglobin ABG Carboxyhemoglobin POC ABG HHb (Measured) ABG Methemoglobin Tong Test ABG Potassium A-a O2 Difference Respiratory Index Hgb O2 Saturation Glucose Lactate Vent Mode Mechanical Rate FiO2 Inspiratory BiPAP Expiratory BiPAP Crit Value Called To Crit Value Called By Crit Value Read Back Blood Gas Notified Time Sodium Potassium Chloride Carbon Dioxide Anion Gap BUN Creatinine Est GFR ( Amer) Est GFR (Non-Af Amer) POC Glucose (mg/dL) Random Glucose Hemoglobin A1c Calcium Magnesium Total Bilirubin AST ALT Alkaline Phosphatase Total Creatine Kinase 318 H CK-MB (Mass) 3.45 H Troponin I 0.7580 H* NT-Pro-B Natriuret Pep Total Protein Albumin Globulin Albumin/Globulin Ratio Triglycerides 148 D Cholesterol 96 LDL Cholesterol Direct < 30 HDL Cholesterol 29 L TSH 3rd Generation Arterial Blood Potassium Urine Color Urine Clarity Urine pH Ur Specific [place] Urine Protein Urine Glucose (UA) Urine Ketones Urine Blood Urine Nitrate Urine Bilirubin Urine Urobilinogen Ur Leukocyte Esterase Urine WBC (Auto) Urine RBC (Auto) Ur Squamous Epith Cells Hyaline Casts Influenza Typ A,B (EIA) Negative for flu a/b Blood Type Antibody Screen
[2017-10-09] MEDS: Heparin25000 units/250ml 1/2NS 25,000 UNITS/250 ML BAG IV PRN ×2 (15:37→20:48)
--- NOTE | 2017-10-09 18:16 | CARD ---
APPROVED REPORT EXAM: Two-dimensional and M-mode echocardiogram with Doppler and color Doppler. Other Information Quality : GoodRhythm : INDICATION Dyspnea Atrial Fibrillation Cardiac Disease: CAD Chest Pain PULMONARY EDEMA RISK FACTORS Hypertension Diabetes 2D DIMENSIONS IVSd0.9 (0.7-1.1cm)LVDd5.2 (3.9-5.9cm) PWd1.0 (0.7-1.1cm)LVDs3.9 (2.5-4.0cm) FS (%) 25.5 %LVEF (%)50.0 (>50%) M-Mode DIMENSIONS Left Atrium (MM)5.56 (2.5-4.0cm)Aortic Root3.31 (2.2-3.7cm) Aortic Cusp Exc.2.31 (1.5-2.0cm) Mitral Valve MV E [id number]/sE/A ratio0.0 TDI E/Lateral E'0.0E/Medial E'0.0 Tricuspid Valve TR Peak [id number] Peak [id number] LEFT VENTRICLE There is borderline concentric left ventricular hypertrophy. The left ventricular function is normal normal. Bi-plane left ventricular ejection fraction is - 55%. There is normal LV segmental wall motion. Transmitral Doppler flow pattern is Grade II-pseudonormal filling dynamics. RIGHT VENTRICLE The right ventricular systolic function is normal. ATRIA The left atrium is moderately dilated. The right atrium is moderately dilated. AORTIC VALVE The aortic valve is normal in structure. No aortic regurgitation is present. MITRAL VALVE The mitral valve is normal in structure. Mitral regurgitation is mild. TRICUSPID VALVE The tricuspid valve is normal in structure. There is mild tricuspid regurgitation. Right ventricular systolic pressure is estimated at - 38 mmHg. There is mild pulmonary hypertension. PULMONIC VALVE The pulmonic valve is not well visualized. There is trace pulmonic valvular regurgitation. GREAT VESSELS The aortic root is normal in size. The aortic root displays mild sclerocalcific changes The IVC was not visualized. PERICARDIAL EFFUSION There is no pericardial effusion. <Conclusion> SUBOPTIMAL STUDY DUE TO POOR ACOUSTIC WINDOWS Preserved the left ventricula rsystolic function. Bi-plane left ventricular ejection fraction is - 55%. Transmitral Doppler flow pattern is Grade II-pseudonormal filling dynamics. The right ventricular systolic function is normal. Moderate bi-atrial enlargement. Mitral regurgitation is mild. There is mild tricuspid regurgitation. Right ventricular systolic pressure is estimated at - 38 mmHg compatible with mild pulmonary hypertension. There is no pericardial effusion.
[2017-10-10] MEDS ORDERED: Heparin25000 units/250ml 1/2NS 25,000 UNITS/250 ML BAG IV PRN (04:15)
[2017-10-10 06:11] LABS: BASO # 0.1 K/uL (0.0-0.2); BASO % 0.8 % (0.0-2.0); EOS # 0.2 K/uL (0.0-0.7); EOS % 2.9 % (0.0-4.0); HEMOGLOBIN 9.1 g/dL (12.0-18.0); LYMPH # 1.9 K/uL (1.0-4.3); MEAN CELL VOLUME 87.1 fL (80.0-94.0); MEAN CORPUSCULAR HEMOGLOBIN 29.4 pg (27.0-31.0); MEAN CORPUSCULAR HGB CONC 33.7 g/dL (33.0-37.0); MEAN PLATELET VOLUME 8.3 fL (7.2-11.7); MONO # 0.7 K/uL (0.0-0.8); MONO % 8.6 % (0.0-10.0); NEUT # 4.8 K/uL (1.8-7.0); NEUT % 62.7 % (50.0-75.0); RBC 3.11 Mil/uL (4.40-5.90); RED CELL DISTRIBUTION WIDTH 15.2 % (11.5-14.5); WHITE BLOOD COUNT 7.6 K/uL (4.8-10.8)
[2017-10-10 06:48] LABS: ALB/GLOB RATIO 0.9 (1.0-2.1); ALBUMIN 3.2 g/dL (3.5-5.0); CALCIUM 8.1 mg/dl (8.6-10.4)
[2017-10-10] MEDS: (Novolog) Insulin Aspart, Recombinant 100 u/ml 10 ml vial SC SCH ×4 (07:30→22:09)
--- NOTE | 2017-10-10 08:16 | CP.PCM.CON ---
History of Present Illness - History of Present Illness History of Present Illness: I was asked to see patient by Dr diaz. Patient is a 62 year old male with PMH HTN, CAD s/p stent RCA, PAD with L BKA, afib who presents with dyspnea. Patient states symptoms began as cough, and progressed to dyspnea. he had intermittent palpitations. He presented to [facility] (formerly [facility]) for further management. Review of Systems - Constitutional Constitutional: absent: As Per HPI, Anorexia, Chills, Daytime Sleepiness, Excessive Sweating, Fatigue, Fever, Frequent Falls, Headache, Increased Appetite , Lethargy, Malaise, Night Sweats, Snoring, Sleep Apnea, Weight Gain, Weight Loss, Weakness, Other - EENT Eyes: absent: As Per HPI, Blind Spots, Blurred Vision, Change in Vision, Decreased Night Vision, Diplopia, Discharge, Dry Eye, Exophthalmos, Floaters, Irritation, Itchy Eyes, Loss of Peripheral Vision, Pain, Photophobia, Requires Corrective Lenses, Sees Flashes, Spots in Vision, Tunnel Vision, Other Visual Disturbances, Loss of Vision, Other Ears: absent: As Per HPI, Decreased Hearing, Ear Discharge, Ear Pain, Tinnitus, Abnormal Hearing, Disequilibrium, Dizziness, Other Nose/Mouth/Throat: absent: As Per HPI, Epistaxis, Nasal Congestion, Nasal Discharge, Nasal Obstruction, Nasal Trauma, Nose Pain, Post Nasal Drip, Sinus Pain, Sinus Pressure, Bleeding Gums, Change in Voice, Dental Pain, Dry Mouth, Dysphagia, Halitosis, Hoarsness, Lip Swelling, Mouth Lesions, Mouth Pain, Odynophagia, Sore Throat, Throat Swelling, Tongue Swelling, Facial Pain, Neck Pain, Neck Mass, Other - Cardiovascular Cardiovascular: Dyspnea - Respiratory Respiratory: Cough, Dyspnea - Gastrointestinal Gastrointestinal: absent: As Per HPI, Abdominal Pain, Belching, Bloating, Change in Bowel Habits, Change in Stool Character, Coffee Ground Emesis, Constipation, Cramping, Diarrhea, Dyspepsia, Dysphagia, Early Satiety, Excessive Flatus, Fecal Incontinence, Heartburn, Hematemesis, Hematochezia, Loose Stools, Melena, Nausea, Odynophagia, Temesmus, Vomiting, Other - Genitourinary Genitourinary: absent: As Per HPI, Change in Urinary Stream, Difficulty Urinating, Dysuria, Flank Pain, Hematuria, Pyuria, Nocturia, Urinary Incontinence, Urinary Frequency, Urinary Hesitance, Urinary Urgency, Voiding Freq/Small Amts, Freq UTI, Hx Renal/Bladder Calculi, Hx /Renal Surgery, Bladder Distension, Other - Musculoskeletal Musculoskeletal: absent: As Per HPI, Abnormal Gait, Arthralgias, Atrophy, Back Pain, Deformity, Joint Swelling, Limited Range of Motion, Loss of Height, Muscle Cramps, Muscle Weakness, Myalgias, Neck Pain, Numbness, Radiating Pain into Limb, Stiffness, Tingling, Other - Integumentary Integumentary: absent: As Per HPI, Acne, Alopecia, Bleeding Lesions, Change in Hair, Change in Nails, Change in Pigmentation, Changing Lesions, Dry Skin, Erythema, Furuncle, Hirsutism, Lesions, New Lesions, Non-Healing Lesions, Photosensitivity, Pruritus, Rash, Skin Pain, Skin Ulcer, Sores, Striae, Swelling , Unusual Bruising, Wounds, Jaundice, Other - Neurological Neurological: absent: As Per HPI, Abnormal Gait, Abnormal Hearing, Abnormal Movements, Abnormal Speech, Behavioral Changes, Burning Sensations, Confusion, Convulsions, Disequilibrium, Dizziness, Numbness, Focal Weakness, Frequent Falls , Headaches, Lack of Coordination, Loss of Vision, Memory Loss, Paresthesias, Radicular Pain, Restless Legs, Sensory Deficit, Syncope, Tingling, Tremor, Vertigo, Weakness, Other Visual Disturbances, Other - Psychiatric Psychiatric: absent: As Per HPI, Abnormal Sleep Pattern, Anhedonia, Anxiety, Auditory Hallucinations, Behavioral Changes, Change in Appetite, Change in Libido, Confusion, Depression, Difficulty Concentrating, Hallucinations, Homicidal Ideation, Hopelessness, Irritability, Memory Loss, Mood Swings, Panic Attacks, Paranoia, Suicidal Ideation, Visual Hallucinations, Tactile Hallucinations, Other - Endocrine Endocrine: absent: As Per HPI, Change in Body Appearance, Change in Libido, Cold Intolorance, Deepening of Voice, Excessive Sweating, Fatigue, Flushing, Heat Intolorance, Increase in Ring/Shoe/Hat Size, Palpitations, Polydipsia, Polyphagia, Polyuria, Other - Hematologic/Lymphatic Hematologic: absent: As Per HPI, Easy Bleeding, Easy Bruising, Lymphadenopathy, Other Past Patient History - Tetanus Immunizations Tetanus Immunization: Unknown - Past Medical History & Family History Past Medical History?: Yes - Past Social History Smoking Status: Former Smoker Drugs: Denies - CARDIAC Hx Atrial Fibrillation: Yes Hx Cardia Arrhythmia: Yes Hx Hypercholesterolemia: Yes Hx Hypertension: Yes - PULMONARY Hx Asthma: No Hx Emphysema: No - NEUROLOGICAL Hx Neurological Disorder: No - HEENT Hx HEENT Problems: No Hx Blind: No Hx Cataracts: No Hx Deafness: No Hx Difficulty Chewing: No Hx Epistaxis: No Hx Glaucoma: No Hx Macular Degeneration: No - RENAL Hx Chronic Kidney Disease: No Hx Kidney Stones: No - ENDOCRINE/METABOLIC Hx Hyperthyroidism: No Hx Hypothyroidism: No - HEMATOLOGICAL/ONCOLOGICAL Hx Anemia: No Hx Human Immunodeficiency Virus (HIV): No Hx Sickle Cell Disease: No - INTEGUMENTARY Hx Dermatological Problems: Yes Hx Basil Cell: No Hx Richard: No Hx Cellulitis: Yes Hx Eczema: No Hx Melanoma: No Hx Psoriasis: No Hx Squamous Cell: No - MUSCULOSKELETAL/RHEUMATOLOGICAL Hx Arthritis: No Hx Fractures: No Hx Osteoporosis: No Hx Rheumatoid Arthritis: No - GASTROINTESTINAL Hx Crohn's Disease: No Hx Diverticulitis: No Hx Gall Bladder Disease: No Hx Gastritis: No Hx Pancreatitis: No - GENITOURINARY/GYNECOLOGICAL Hx Sexually Transmitted Disorders: No - PSYCHIATRIC Hx Substance Use: No - SURGICAL HISTORY Hx Surgeries: Yes (left bka) - ANESTHESIA Hx Anesthesia: Yes Hx Anesthesia Reactions: No Hx Malignant Hyperthermia: No Meds Allergies/Adverse Reactions: Allergies Allergy/AdvReac Type Severity Reaction Status Date / Time No Known Allergies Allergy Verified 10/09/17 03:23 - Medications Medications: Current Medications Aspirin (Ecotrin) 81 mg PO DAILY [facility] Last Admin: 10/09/17 09:59 Dose: 81 mg Heparin Sodium/Sodium Chloride (Heparin 85905 Units/250ml 1/2 Normal Saline) 25 ,000 units in 250 mls @ 10.362 mls/hr IV .Q24H PRN; Protocol; 11 UNITS/KG/HR PRN Reason: PROTOCOL Last Admin: 10/10/17 04:05 Dose: 11 units/kg/hr, 10.362 mls/hr Insulin Aspart (Novolog) 0 unit SC ACHS [facility] PRN Reason: Protocol Last Admin: 10/09/17 21:25 Dose: Not Given Metoprolol Tartrate (Lopressor) 25 mg PO BID [facility] Last Admin: 10/09/17 17:47 Dose: 25 mg Nitroglycerin (Nitrostat Sl Tab) 0.4 mg SL Q5M PRN PRN Reason: chest pain Pantoprazole Sodium (Protonix Ec Tab) 40 mg PO DAILY [facility] Last Admin: 10/09/17 09:58 Dose: 40 mg Rosuvastatin Calcium (Crestor) 5 mg PO [facility] Last Admin: 10/09/17 21:26 Dose: 5 mg Physical Exam - Constitutional Appears: Non-toxic - Head Exam Head Exam: NORMAL INSPECTION - Eye Exam Eye Exam: Normal appearance - ENT Exam ENT Exam: Mucous Membranes Moist - Neck Exam Neck exam: Positive for: Normal Inspection - Respiratory Exam Respiratory Exam: Decreased Breath Sounds - Cardiovascular Exam Cardiovascular Exam: Irregular Rhythm - GI/Abdominal Exam GI & Abdominal Exam: Normal Bowel Sounds - Rectal Exam Rectal Exam: Deferred - Extremities Exam Extremities exam: Positive for: pedal edema - Back Exam Back exam: NORMAL INSPECTION - Neurological Exam Neurological exam: Alert, Oriented x3 - Psychiatric Exam Psychiatric exam: Normal Affect - Skin Skin Exam: Normal Color Results - Vital Signs Recent Vital Signs: Last Vital Signs Temp 98.6 F 10/10/17 04:00 Pulse 84 10/10/17 07:52 Resp 27 H 10/10/17 07:00 BP 165/67 H 10/10/17 06:19 Pulse Ox 99 10/10/17 07:00 - Labs Result Diagrams: 10/10/17 05:59 10/10/17 06:02 Labs: Laboratory Results - last 24 hr 10/09/17 10/09/17 10/09/17 06:28 11:21 11:37 WBC RBC Hgb Hct MCV MCH MCHC RDW Plt Count MPV Neut % (Auto) Lymph % (Auto) Falls % (Auto) Eos % (Auto) Baso % (Auto) Neut # (Auto) Lymph # (Auto) Falls # (Auto) Eos # (Auto) Baso # (Auto) APTT Sodium Potassium Chloride Carbon Dioxide Anion Gap BUN Creatinine Est GFR ( Amer) Est GFR (Non-Af Amer) POC Glucose (mg/dL) 249 H Random Glucose Hemoglobin A1c 6.4 Calcium Phosphorus Magnesium Total Bilirubin AST ALT Alkaline Phosphatase Total Creatine Kinase 318 H CK-MB (Mass) 3.45 H Troponin I 0.7580 H* Total Protein Albumin Globulin Albumin/Globulin Ratio Triglycerides Cholesterol LDL Cholesterol Direct HDL Cholesterol Influenza Typ A,B (EIA) 10/09/17 10/09/17 10/09/17 11:37 11:37 16:19 WBC RBC Hgb Hct MCV MCH MCHC RDW Plt Count MPV Neut % (Auto) Lymph % (Auto) Falls % (Auto) Eos % (Auto) Baso % (Auto) Neut # (Auto) Lymph # (Auto) Falls # (Auto) Eos # (Auto) Baso # (Auto) APTT Sodium Potassium Chloride Carbon Dioxide Anion Gap BUN Creatinine Est GFR ( Amer) Est GFR (Non-Af Amer) POC Glucose (mg/dL) 85 Random Glucose Hemoglobin A1c Calcium Phosphorus Magnesium Total Bilirubin AST ALT Alkaline Phosphatase Total Creatine Kinase CK-MB (Mass) Troponin I Total Protein Albumin Globulin Albumin/Globulin Ratio Triglycerides 148 D Cholesterol 96 LDL Cholesterol Direct < 30 HDL Cholesterol 29 L Influenza Typ A,B (EIA) Negative for flu a/b 10/09/17 10/09/17 10/10/17 20:44 21:16 03:00 WBC RBC Hgb Hct MCV MCH MCHC RDW Plt Count MPV Neut % (Auto) Lymph % (Auto) Falls % (Auto) Eos % (Auto) Baso % (Auto) Neut # (Auto) Lymph # (Auto) Falls # (Auto) Eos # (Auto) Baso # (Auto) APTT 44 H Sodium Potassium Chloride Carbon Dioxide Anion Gap BUN Creatinine Est GFR ( Amer) Est GFR (Non-Af Amer) POC Glucose (mg/dL) 109 Random Glucose Hemoglobin A1c Calcium Phosphorus Magnesium Total Bilirubin AST ALT Alkaline Phosphatase Total Creatine Kinase CK-MB (Mass) Troponin I 0.9320 H* Total Protein Albumin Globulin Albumin/Globulin Ratio Triglycerides Cholesterol LDL Cholesterol Direct HDL Cholesterol Influenza Typ A,B (EIA) 10/10/17 10/10/17 10/10/17 05:59 05:59 06:02 WBC 7.6 RBC 3.11 L Hgb 9.1 L Hct 27.1 L MCV 87.1 MCH 29.4 MCHC 33.7 RDW 15.2 H Plt Count 191 MPV 8.3 Neut % (Auto) 62.7 Lymph % (Auto) 25.0 Falls % (Auto) 8.6 Eos % (Auto) 2.9 Baso % (Auto) 0.8 Neut # (Auto) 4.8 Lymph # (Auto) 1.9 Falls # (Auto) 0.7 Eos # (Auto) 0.2 Baso # (Auto) 0.1 APTT Sodium 144 Potassium 5.0 Chloride 111 H Carbon Dioxide 25 Anion Gap 13 BUN 31 H Creatinine 1.7 H Est GFR ( Amer) 50 Est GFR (Non-Af Amer) 41 POC Glucose (mg/dL) Random Glucose 97 Hemoglobin A1c 6.4 Calcium 8.1 L Phosphorus 4.5 Magnesium 1.7 Total Bilirubin 0.4 AST 35 ALT 17 L D Alkaline Phosphatase 93 Total Creatine Kinase CK-MB (Mass) Troponin I Total Protein 6.7 Albumin 3.2 L Globulin 3.4 Albumin/Globulin Ratio 0.9 L Triglycerides Cholesterol LDL Cholesterol Direct HDL Cholesterol Influenza Typ A,B (EIA) 10/10/17 07:14 WBC RBC Hgb Hct MCV MCH MCHC RDW Plt Count MPV Neut % (Auto) Lymph % (Auto) Falls % (Auto) Eos % (Auto) Baso % (Auto) Neut # (Auto) Lymph # (Auto) Falls # (Auto) Eos # (Auto) Baso # (Auto) APTT Sodium Potassium Chloride Carbon Dioxide Anion Gap BUN Creatinine Est GFR ( Amer) Est GFR (Non-Af Amer) POC Glucose (mg/dL) 99 Random Glucose Hemoglobin A1c Calcium Phosphorus Magnesium Total Bilirubin AST ALT Alkaline Phosphatase Total Creatine Kinase CK-MB (Mass) Troponin I Total Protein Albumin Globulin Albumin/Globulin Ratio Triglycerides Cholesterol LDL Cholesterol Direct HDL Cholesterol Influenza Typ A,B (EIA) - EKG Data EKG Interpreted by: Myself Assessment & Plan (1) CHF (congestive heart failure) Assessment and Plan: appears acute on chronic. will need echo to evaluate LV function. Status: Acute Priority: High (2) CAD (coronary artery disease) Assessment and Plan: conitnue antiplatelet therapy Status: Acute (3) Atrial fibrillation Assessment and Plan: rate control. anticaogulation to reduce risk of embolic event Status: Chronic Priority: Medium (4) Hypertension, benign Assessment and Plan: blood pressure control Status: Acute
[2017-10-10] MEDS: Pantoprazole 40 mg EC Tab PO SCH ×2 (10:00→11:05)
--- NOTE | 2017-10-10 12:53 | CARD ---
APPROVED REPORT EKG Measurement Heart [id number] <Conclusion> Atrial fibrillation Nonspecific ST abnormality Abnormal ECG
--- NOTE | 2017-10-10 12:54 | CARD ---
APPROVED REPORT EKG Measurement Heart [id number] <Conclusion> Atrial fibrillation with rapid ventricular response Rightward axis Nonspecific ST abnormality Abnormal QRS-T angle, consider primary T wave abnormality Abnormal ECG
--- NOTE | 2017-10-10 16:57 | CP.CCUPN ---
<Antonia Ansari - Last Filed: 10/10/17 16:54> CCU Subjective - Physician Review Subjective (Free Text): Patient seen and examined at bedside. No overnight events reported. Patient only complains of cough. States that SOB has improved. CCU Objective - Vital Signs / Intake & Output Vital Signs (Last 4 hours): Vital Signs Temp Pulse Resp BP Pulse Ox 10/10/17 16:20 81 10/10/17 16:00 98.4 F 87 20 10/10/17 15:19 80 24 155/56 H 94 L 10/10/17 15:00 90 20 96 10/10/17 14:19 72 24 150/57 L 98 10/10/17 14:00 77 25 H 99 10/10/17 13:00 77 25 H 92 L Intake and Output (Last 8hrs): Intake & Output 10/10/17 10/10/17 10/10/17 06:59 14:59 22:59 Intake Total 73.7 563.2 910.8 Output Total 005 733 8077 Balance -651.3 -236.8 -139.2 Weight 207 lb 10.807 oz Intake: Intake, IV Amount 73.7 83.2 20.8 Left Hand 73.7 83.2 20.8 Oral 480 890 Output: Urine 455 597 9324 Urine, Voided 786 986 9725 - Physical Exam Head: Positive for: Atraumatic, Normocephalic Conjunctiva: Positive for: Normal Respiratory/Chest: Positive for: Clear to Auscultation Cardiovascular: Positive for: Regular Rate and Rhythm, Normal S1, S2 Abdomen: Positive for: Normal Bowel Sounds. Negative for: Tenderness Upper Extremity: Positive for: Normal Inspection Lower Extremity: Positive for: Edema (+1 B/L ) Neurological: Positive for: GCS=15 Skin: Positive for: Warm, Dry, Normal Color Psychiatric: Positive for: Alert, Oriented x 3 - Medications Active Medications: Active Medications Generic Name Dose Route Start Last Admin Trade Name Freq PRN Reason Stop Dose Admin Aspirin 81 mg 10/09/17 10:00 10/10/17 10:00 Ecotrin PO 81 mg DAILY OMAIRA Administration Heparin Sodium/Sodium Chloride 25,000 units in 250 mls @ 10.362 mls/hr 04:15 10/10/17 04:05 Heparin 76774 Units/250ml 1/2 Normal Saline IV 11 units/kg/hr .Q24H PRN 10.362 mls/hr PROTOCOL Administration Protocol 11 UNITS/KG/HR Insulin Aspart 0 unit 10/09/17 11:30 10/10/17 11:28 Novolog SC Not Given ACHS OMAIRA Protocol Metoprolol Tartrate 25 mg 10/09/17 18:00 10/10/17 10:15 Lopressor PO 25 mg BID OMAIRA Administration Nitroglycerin 0.4 mg 10/09/17 22:06 Nitrostat Sl Tab SL Q5M PRN chest pain Pantoprazole Sodium 40 mg 10/09/17 10:00 10/10/17 11:05 Protonix Ec Tab PO 40 mg DAILY OMAIRA Administration Rosuvastatin Calcium 5 mg 10/09/17 22:00 10/09/17 21:26 Crestor PO 5 mg HS OMAIRA Administration - Patient Studies Lab Studies: Microbiology Studies 10/09/17 11:37 Blood Culture - Preliminary Blood NO GROWTH AFTER 24 HOURS 10/09/17 11:37 Blood Culture - Preliminary Blood NO GROWTH AFTER 24 HOURS Lab Studies 10/10/17 10/10/17 10/10/17 Range/Units 11:23 11:21 07:14 WBC (4.8-10.8) K/uL RBC (4.40-5.90) Mil/uL Hgb (12.0-18.0) g/dL Hct (35.0-51.0) % MCV (80.0-94.0) fL MCH (27.0-31.0) pg MCHC (33.0-37.0) g/dL RDW (11.5-14.5) % Plt Count (130-400) K/uL MPV (7.2-11.7) fL Neut % (Auto) (50.0-75.0) % Lymph % (Auto) (20.0-40.0) % Archer % (Auto) (0.0-10.0) % Eos % (Auto) (0.0-4.0) % Baso % (Auto) (0.0-2.0) % Neut # (Auto) (1.8-7.0) K/uL Lymph # (Auto) (1.0-4.3) K/uL Archer # (Auto) (0.0-0.8) K/uL Eos # (Auto) (0.0-0.7) K/uL Baso # (Auto) (0.0-0.2) K/uL APTT 51 H D (21-34) SECONDS Sodium (132-148) mmol/L Potassium (3.6-5.2) mmol/L Chloride (98-107) mmol/L Carbon Dioxide (22-30) mmol/L Anion Gap (10-20) BUN (9-20) mg/dL Creatinine (0.8-1.5) mg/dL Est GFR ( Amer) Est GFR (Non-Af Amer) POC Glucose (mg/dL) 106 99 (65-110) mg/dL Random Glucose (75-110) mg/dL Hemoglobin A1c (4.2-6.5) % Calcium (8.6-10.4) mg/dl Phosphorus (2.5-4.5) mg/dL Magnesium (1.6-2.3) mg/dL Total Bilirubin (0.2-1.3) mg/dL AST (17-59) U/L ALT (21-72) U/L Alkaline Phosphatase (38-126) U/L Troponin I (0.00-0.120) ng/mL Total Protein (6.3-8.3) g/dL Albumin (3.5-5.0) g/dL Globulin (2.2-3.9) gm/dL Albumin/Globulin Ratio (1.0-2.1) 10/10/1718 10/10/17 Range/Units 06:02 05:59 05:59 WBC 7.6 (4.8-10.8) K/uL RBC 3.11 L (4.40-5.90) Mil/uL Hgb 9.1 L (12.0-18.0) g/dL Hct 27.1 L (35.0-51.0) % MCV 87.1 (80.0-94.0) fL MCH 29.4 (27.0-31.0) pg MCHC 33.7 (33.0-37.0) g/dL RDW 15.2 H (11.5-14.5) % Plt Count 191 (130-400) K/uL MPV 8.3 (7.2-11.7) fL Neut % (Auto) 62.7 (50.0-75.0) % Lymph % (Auto) 25.0 (20.0-40.0) % Archer % (Auto) 8.6 (0.0-10.0) % Eos % (Auto) 2.9 (0.0-4.0) % Baso % (Auto) 0.8 (0.0-2.0) % Neut # (Auto) 4.8 (1.8-7.0) K/uL Lymph # (Auto) 1.9 (1.0-4.3) K/uL Archer # (Auto) 0.7 (0.0-0.8) K/uL Eos # (Auto) 0.2 (0.0-0.7) K/uL Baso # (Auto) 0.1 (0.0-0.2) K/uL APTT (21-34) SECONDS Sodium 144 (132-148) mmol/L Potassium 5.0 (3.6-5.2) mmol/L Chloride 111 H (98-107) mmol/L Carbon Dioxide 25 (22-30) mmol/L Anion Gap 13 (10-20) BUN 31 H (9-20) mg/dL Creatinine 1.7 H (0.8-1.5) mg/dL Est GFR ( Amer) 50 Est GFR (Non-Af Amer) 41 POC Glucose (mg/dL) (65-110) mg/dL Random Glucose 97 (75-110) mg/dL Hemoglobin A1c 6.4 (4.2-6.5) % Calcium 8.1 L (8.6-10.4) mg/dl Phosphorus 4.5 (2.5-4.5) mg/dL Magnesium 1.7 (1.6-2.3) mg/dL Total Bilirubin 0.4 (0.2-1.3) mg/dL AST 35 (17-59) U/L ALT 17 L D (21-72) U/L Alkaline Phosphatase 93 (38-126) U/L Troponin I (0.00-0.120) ng/mL Total Protein 6.7 (6.3-8.3) g/dL Albumin 3.2 L (3.5-5.0) g/dL Globulin 3.4 (2.2-3.9) gm/dL Albumin/Globulin Ratio 0.9 L (1.0-2.1) 10/10/17 10/09/17 10/09/17 Range/Units 03:00 21:16 20:44 WBC (4.8-10.8) K/uL RBC (4.40-5.90) Mil/uL Hgb (12.0-18.0) g/dL Hct (35.0-51.0) % MCV (80.0-94.0) fL MCH (27.0-31.0) pg MCHC (33.0-37.0) g/dL RDW (11.5-14.5) % Plt Count (130-400) K/uL MPV (7.2-11.7) fL Neut % (Auto) (50.0-75.0) % Lymph % (Auto) (20.0-40.0) % Archer % (Auto) (0.0-10.0) % Eos % (Auto) (0.0-4.0) % Baso % (Auto) (0.0-2.0) % Neut # (Auto) (1.8-7.0) K/uL Lymph # (Auto) (1.0-4.3) K/uL Archer # (Auto) (0.0-0.8) K/uL Eos # (Auto) (0.0-0.7) K/uL Baso # (Auto) (0.0-0.2) K/uL APTT 44 H (21-34) SECONDS Sodium (132-148) mmol/L Potassium (3.6-5.2) mmol/L Chloride (98-107) mmol/L Carbon Dioxide (22-30) mmol/L Anion Gap (10-20) BUN (9-20) mg/dL Creatinine (0.8-1.5) mg/dL Est GFR ( Amer) Est GFR (Non-Af Amer) POC Glucose (mg/dL) 109 (65-110) mg/dL Random Glucose (75-110) mg/dL Hemoglobin A1c (4.2-6.5) % Calcium (8.6-10.4) mg/dl Phosphorus (2.5-4.5) mg/dL Magnesium (1.6-2.3) mg/dL Total Bilirubin (0.2-1.3) mg/dL AST (17-59) U/L ALT (21-72) U/L Alkaline Phosphatase (38-126) U/L Troponin I 0.9320 H* (0.00-0.120) ng/mL Total Protein (6.3-8.3) g/dL Albumin (3.5-5.0) g/dL Globulin (2.2-3.9) gm/dL Albumin/Globulin Ratio (1.0-2.1) Laboratory Results - last 24 hr 10/09/17 10/09/17 10/10/17 20:44 21:16 03:00 WBC RBC Hgb Hct MCV MCH MCHC RDW Plt Count MPV Neut % (Auto) Lymph % (Auto) Archer % (Auto) Eos % (Auto) Baso % (Auto) Neut # (Auto) Lymph # (Auto) Archer # (Auto) Eos # (Auto) Baso # (Auto) APTT 44 H Sodium Potassium Chloride Carbon Dioxide Anion Gap BUN Creatinine Est GFR ( Amer) Est GFR (Non-Af Amer) POC Glucose (mg/dL) 109 Random Glucose Hemoglobin A1c Calcium Phosphorus Magnesium Total Bilirubin AST ALT Alkaline Phosphatase Troponin I 0.9320 H* Total Protein Albumin Globulin Albumin/Globulin Ratio 10/10/17 10/10/17 10/10/17 05:59 05:59 06:02 WBC 7.6 RBC 3.11 L Hgb 9.1 L Hct 27.1 L MCV 87.1 MCH 29.4 MCHC 33.7 RDW 15.2 H Plt Count 191 MPV 8.3 Neut % (Auto) 62.7 Lymph % (Auto) 25.0 Archer % (Auto) 8.6 Eos % (Auto) 2.9 Baso % (Auto) 0.8 Neut # (Auto) 4.8 Lymph # (Auto) 1.9 Archer # (Auto) 0.7 Eos # (Auto) 0.2 Baso # (Auto) 0.1 APTT Sodium 144 Potassium 5.0 Chloride 111 H Carbon Dioxide 25 Anion Gap 13 BUN 31 H Creatinine 1.7 H Est GFR ( Amer) 50 Est GFR (Non-Af Amer) 41 POC Glucose (mg/dL) Random Glucose 97 Hemoglobin A1c 6.4 Calcium 8.1 L Phosphorus 4.5 Magnesium 1.7 Total Bilirubin 0.4 AST 35 ALT 17 L D Alkaline Phosphatase 93 Troponin I Total Protein 6.7 Albumin 3.2 L Globulin 3.4 Albumin/Globulin Ratio 0.9 L 10/10/17 10/10/17 10/10/17 07:14 11:21 11:23 WBC RBC Hgb Hct MCV MCH MCHC RDW Plt Count MPV Neut % (Auto) Lymph % (Auto) Archer % (Auto) Eos % (Auto) Baso % (Auto) Neut # (Auto) Lymph # (Auto) Archer # (Auto) Eos # (Auto) Baso # (Auto) APTT 51 H D Sodium Potassium Chloride Carbon Dioxide Anion Gap BUN Creatinine Est GFR ( Amer) Est GFR (Non-Af Amer) POC Glucose (mg/dL) 99 106 Random Glucose Hemoglobin A1c Calcium Phosphorus Magnesium Total Bilirubin AST ALT Alkaline Phosphatase Troponin I Total Protein Albumin Globulin Albumin/Globulin Ratio Fingerstick Blood Sugar Results: 106 Review of Systems - Constitutional Constitutional: absent: Fever, Chills - Cardiovascular Cardiovascular: absent: Chest Pain - Respiratory Respiratory: Cough - Gastrointestinal Gastrointestinal: absent: Abdominal Pain, Change in Bowel Habits - Genitourinary Genitourinary: UNREMARKABLE. absent: Change in Urinary Stream, Difficulty Urinating - Neurological Neurological: UNREMARKABLE Critical Care Progress Note - Nutrition Nutrition: Nutrition Category Date Time Status Consistent Carbohydrate [DIET] Diets 10/09/17 Breakfast Active Assessment/Plan - Assessment and Plan (Free Text) Assessment: Patient is a 62 year old male with PMH HTN, CAD s/p stent RCA, PAD with L BKA, afib who presented with Dyspnea. Troponins found to be elevated and patient was started on Heparin Drip. Plan: Neuro: GCS: 15 Sedation: None Cardio: A: NSTEMI, CHF, CAD, A-fib, HTN ECHO (10/09): 55% EF, Mild Pulm HTN, Grade II abnormal relaxation pattern EKG (10/09): Atrial Fibriliation Continue Heparin Drip, MEtoprolol, Crestor, ASA Nitro Paste PRN Endo: A: DM II Novolog ACHS Renal A: DOROTHY likely 2/2 to lasix Consider fluids Monitor CKD vs New DOROTHY? Proph Protonix Heparin Patient discussed with ICU Attending Antonia Ansari, PGY-1 <Marco Aviles Last Filed: 10/10/17 18:51> CCU Objective - Vital Signs / Intake & Output Vital Signs (Last 4 hours): Vital Signs Temp Pulse Resp BP Pulse Ox 10/10/17 18:00 84 24 10/10/17 17:38 158/66 H 10/10/17 17:20 98.7 F 80 20 164/84 H 99 10/10/17 17:17 85 33 H 99 10/10/17 17:09 82 31 H 175/79 H 99 10/10/17 17:00 90 22 10/10/17 16:28 156/57 H 10/10/17 16:25 69 22 100 10/10/17 16:20 81 10/10/17 16:19 156/57 H 10/10/17 16:18 86 18 99 10/10/17 16:00 98.4 F 83 29 H 95 10/10/17 15:19 80 24 155/56 H 94 L 10/10/17 15:00 90 20 96 Intake and Output (Last 8hrs): Intake & Output 10/10/17 10/10/17 10/10/17 06:59 14:59 22:59 Intake Total 73.7 563.2 1411.6 Output Total 820 849 3046 Balance -651.3 -236.8 361.6 Weight 207 lb 10.807 oz Intake: IV 0 Intake, IV Amount 73.7 83.2 41.6 Left Hand 73.7 83.2 41.6 Oral 480 1370 Output: Urine 220 029 7032 Urine, Voided 792 609 1365 - Medications Active Medications: Active Medications Generic Name Dose Route Start Last Admin Trade Name Freq PRN Reason Stop Dose Admin Amlodipine Besylate 10 mg 10/10/17 18:45 Norvasc PO DAILY OMAIRA Aspirin 81 mg 10/09/17 10:00 10/10/17 10:00 Ecotrin PO 81 mg DAILY OMAIRA Administration Heparin Sodium/Sodium Chloride 25,000 units in 250 mls @ 10.362 mls/hr 04:15 10/10/17 16:00 Heparin 52934 Units/250ml 1/2 Normal Saline IV 11 units/kg/hr .Q24H PRN 10.362 mls/hr PROTOCOL Titration Protocol 11 UNITS/KG/HR Insulin Aspart 0 unit 10/09/17 11:30 10/10/17 14:40 Novolog SC 2 unit ACHS OMAIRA Administration Protocol Metoprolol Tartrate 25 mg 10/09/17 18:00 10/10/17 17:38 Lopressor PO 25 mg BID OMAIRA Administration Nitroglycerin 0.4 mg 10/09/17 22:06 10/10/17 17:25 Nitrostat Sl Tab SL 0.4 mg Q5M PRN Administration chest pain Pantoprazole Sodium 40 mg 10/09/17 10:00 10/10/17 11:05 Protonix Ec Tab PO 40 mg DAILY OMAIRA Administration Rosuvastatin Calcium 5 mg 10/09/17 22:00 10/09/17 21:26 Crestor PO 5 mg HS OMAIRA Administration - Patient Studies Lab Studies: Microbiology Studies 10/09/17 06:29 MRSA Culture (Admit) - Final Naris MRSA NOT DETECTED 10/09/17 11:37 Blood Culture - Preliminary Blood NO GROWTH AFTER 24 HOURS 10/09/17 11:37 Blood Culture - Preliminary Blood NO GROWTH AFTER 24 HOURS Lab Studies 10/10/17 10/10/17 10/10/17 Range/Units 11:23 11:21 07:14 WBC (4.8-10.8) K/uL RBC (4.40-5.90) Mil/uL Hgb (12.0-18.0) g/dL Hct (35.0-51.0) % MCV (80.0-94.0) fL MCH (27.0-31.0) pg MCHC (33.0-37.0) g/dL RDW (11.5-14.5) % Plt Count (130-400) K/uL MPV (7.2-11.7) fL Neut % (Auto) (50.0-75.0) % Lymph % (Auto) (20.0-40.0) % Archer % (Auto) (0.0-10.0) % Eos % (Auto) (0.0-4.0) % Baso % (Auto) (0.0-2.0) % Neut # (Auto) (1.8-7.0) K/uL Lymph # (Auto) (1.0-4.3) K/uL Archer # (Auto) (0.0-0.8) K/uL Eos # (Auto) (0.0-0.7) K/uL Baso # (Auto) (0.0-0.2) K/uL APTT 51 H D (21-34) SECONDS Sodium (132-148) mmol/L Potassium (3.6-5.2) mmol/L Chloride (98-107) mmol/L Carbon Dioxide (22-30) mmol/L Anion Gap (10-20) BUN (9-20) mg/dL Creatinine (0.8-1.5) mg/dL Est GFR ( Amer) Est GFR (Non-Af Amer) POC Glucose (mg/dL) 106 99 (65-110) mg/dL Random Glucose (75-110) mg/dL Hemoglobin A1c (4.2-6.5) % Calcium (8.6-10.4) mg/dl Phosphorus (2.5-4.5) mg/dL Magnesium (1.6-2.3) mg/dL Total Bilirubin (0.2-1.3) mg/dL AST (17-59) U/L ALT (21-72) U/L Alkaline Phosphatase (38-126) U/L Troponin I (0.00-0.120) ng/mL Total Protein (6.3-8.3) g/dL Albumin (3.5-5.0) g/dL Globulin (2.2-3.9) gm/dL Albumin/Globulin Ratio (1.0-2.1) 18 18 10/10/17 Range/Units 06:02 05:59 05:59 WBC 7.6 (4.8-10.8) K/uL RBC 3.11 L (4.40-5.90) Mil/uL Hgb 9.1 L (12.0-18.0) g/dL Hct 27.1 L (35.0-51.0) % MCV 87.1 (80.0-94.0) fL MCH 29.4 (27.0-31.0) pg MCHC 33.7 (33.0-37.0) g/dL RDW 15.2 H (11.5-14.5) % Plt Count 191 (130-400) K/uL MPV 8.3 (7.2-11.7) fL Neut % (Auto) 62.7 (50.0-75.0) % Lymph % (Auto) 25.0 (20.0-40.0) % Archer % (Auto) 8.6 (0.0-10.0) % Eos % (Auto) 2.9 (0.0-4.0) % Baso % (Auto) 0.8 (0.0-2.0) % Neut # (Auto) 4.8 (1.8-7.0) K/uL Lymph # (Auto) 1.9 (1.0-4.3) K/uL Archer # (Auto) 0.7 (0.0-0.8) K/uL Eos # (Auto) 0.2 (0.0-0.7) K/uL Baso # (Auto) 0.1 (0.0-0.2) K/uL APTT (21-34) SECONDS Sodium 144 (132-148) mmol/L Potassium 5.0 (3.6-5.2) mmol/L Chloride 111 H (98-107) mmol/L Carbon Dioxide 25 (22-30) mmol/L Anion Gap 13 (10-20) BUN 31 H (9-20) mg/dL Creatinine 1.7 H (0.8-1.5) mg/dL Est GFR ( Amer) 50 Est GFR (Non-Af Amer) 41 POC Glucose (mg/dL) (65-110) mg/dL Random Glucose 97 (75-110) mg/dL Hemoglobin A1c 6.4 (4.2-6.5) % Calcium 8.1 L (8.6-10.4) mg/dl Phosphorus 4.5 (2.5-4.5) mg/dL Magnesium 1.7 (1.6-2.3) mg/dL Total Bilirubin 0.4 (0.2-1.3) mg/dL AST 35 (17-59) U/L ALT 17 L D (21-72) U/L Alkaline Phosphatase 93 (38-126) U/L Troponin I (0.00-0.120) ng/mL Total Protein 6.7 (6.3-8.3) g/dL Albumin 3.2 L (3.5-5.0) g/dL Globulin 3.4 (2.2-3.9) gm/dL Albumin/Globulin Ratio 0.9 L (1.0-2.1) 10/10/17 10/09/17 10/09/17 Range/Units 03:00 21:16 20:44 WBC (4.8-10.8) K/uL RBC (4.40-5.90) Mil/uL Hgb (12.0-18.0) g/dL Hct (35.0-51.0) % MCV (80.0-94.0) fL MCH (27.0-31.0) pg MCHC (33.0-37.0) g/dL RDW (11.5-14.5) % Plt Count (130-400) K/uL MPV (7.2-11.7) fL Neut % (Auto) (50.0-75.0) % Lymph % (Auto) (20.0-40.0) % Archer % (Auto) (0.0-10.0) % Eos % (Auto) (0.0-4.0) % Baso % (Auto) (0.0-2.0) % Neut # (Auto) (1.8-7.0) K/uL Lymph # (Auto) (1.0-4.3) K/uL Archer # (Auto) (0.0-0.8) K/uL Eos # (Auto) (0.0-0.7) K/uL Baso # (Auto) (0.0-0.2) K/uL APTT 44 H (21-34) SECONDS Sodium (132-148) mmol/L Potassium (3.6-5.2) mmol/L Chloride (98-107) mmol/L Carbon Dioxide (22-30) mmol/L Anion Gap (10-20) BUN (9-20) mg/dL Creatinine (0.8-1.5) mg/dL Est GFR ( Amer) Est GFR (Non-Af Amer) POC Glucose (mg/dL) 109 (65-110) mg/dL Random Glucose (75-110) mg/dL Hemoglobin A1c (4.2-6.5) % Calcium (8.6-10.4) mg/dl Phosphorus (2.5-4.5) mg/dL Magnesium (1.6-2.3) mg/dL Total Bilirubin (0.2-1.3) mg/dL AST (17-59) U/L ALT (21-72) U/L Alkaline Phosphatase (38-126) U/L Troponin I 0.9320 H* (0.00-0.120) ng/mL Total Protein (6.3-8.3) g/dL Albumin (3.5-5.0) g/dL Globulin (2.2-3.9) gm/dL Albumin/Globulin Ratio (1.0-2.1) Laboratory Results - last 24 hr 10/09/17 10/09/17 10/10/17 20:44 21:16 03:00 WBC RBC Hgb Hct MCV MCH MCHC RDW Plt Count MPV Neut % (Auto) Lymph % (Auto) Archer % (Auto) Eos % (Auto) Baso % (Auto) Neut # (Auto) Lymph # (Auto) Archer # (Auto) Eos # (Auto) Baso # (Auto) APTT 44 H Sodium Potassium Chloride Carbon Dioxide Anion Gap BUN Creatinine Est GFR ( Amer) Est GFR (Non-Af Amer) POC Glucose (mg/dL) 109 Random Glucose Hemoglobin A1c Calcium Phosphorus Magnesium Total Bilirubin AST ALT Alkaline Phosphatase Troponin I 0.9320 H* Total Protein Albumin Globulin Albumin/Globulin Ratio 10/10/17 10/10/17 10/10/17 05:59 05:59 06:02 WBC 7.6 RBC 3.11 L Hgb 9.1 L Hct 27.1 L MCV 87.1 MCH 29.4 MCHC 33.7 RDW 15.2 H Plt Count 191 MPV 8.3 Neut % (Auto) 62.7 Lymph % (Auto) 25.0 Archer % (Auto) 8.6 Eos % (Auto) 2.9 Baso % (Auto) 0.8 Neut # (Auto) 4.8 Lymph # (Auto) 1.9 Archer # (Auto) 0.7 Eos # (Auto) 0.2 Baso # (Auto) 0.1 APTT Sodium 144 Potassium 5.0 Chloride 111 H Carbon Dioxide 25 Anion Gap 13 BUN 31 H Creatinine 1.7 H Est GFR ( Amer) 50 Est GFR (Non-Af Amer) 41 POC Glucose (mg/dL) Random Glucose 97 Hemoglobin A1c 6.4 Calcium 8.1 L Phosphorus 4.5 Magnesium 1.7 Total Bilirubin 0.4 AST 35 ALT 17 L D Alkaline Phosphatase 93 Troponin I Total Protein 6.7 Albumin 3.2 L Globulin 3.4 Albumin/Globulin Ratio 0.9 L 10/10/17 10/10/17 10/10/17 07:14 11:21 11:23 WBC RBC Hgb Hct MCV MCH MCHC RDW Plt Count MPV Neut % (Auto) Lymph % (Auto) Archer % (Auto) Eos % (Auto) Baso % (Auto) Neut # (Auto) Lymph # (Auto) Archer # (Auto) Eos # (Auto) Baso # (Auto) APTT 51 H D Sodium Potassium Chloride Carbon Dioxide Anion Gap BUN Creatinine Est GFR ( Amer) Est GFR (Non-Af Amer) POC Glucose (mg/dL) 99 106 Random Glucose Hemoglobin A1c Calcium Phosphorus Magnesium Total Bilirubin AST ALT Alkaline Phosphatase Troponin I Total Protein Albumin Globulin Albumin/Globulin Ratio EKG/Cardiology Studies: Cardiology / EKG Studies 10/10/17 17:07 EKG [ELECTROCARDIOGRAM] Routine Comment: Mode Of Transportation: Reason For Exam: Chest pain Critical Care Progress Note - Nutrition Nutrition: Nutrition Category Date Time Status Consistent Carbohydrate [DIET] Diets 10/09/17 Breakfast Active Attending/Attestation - Attestation I have personally seen and examined this patient.: Yes I have fully participated in the care of the patient.: Yes I have reviewed all pertinent clinical information: Yes Notes (Text): 10/10/17 18:50 62 year old male with PMH HTN, CAD s/p stent RCA, PAD with L BKA, afib who presented with Dyspnea. Troponins found to be elevated and patient was started on Heparin Drip BiPAP as needed Case discussed with cardiology and no plan for cardiac cath Continue medical management
--- NOTE | 2017-10-10 18:37 | CP.PCM.PN ---
Subjective - Date & Time of Evaluation Date of Evaluation: 10/10/17 Time of Evaluation: 18:30 - Subjective Subjective: patient is on BiPAP. no chest pain Objective - Vital Signs/Intake and Output Vital Signs (last 24 hours): Temp Pulse Resp BP Pulse Ox 98.7 F 84 24 158/66 H 99 10/10/17 17:20 10/10/17 18:00 10/10/17 18:00 10/10/17 17:38 10/10/17 17:20 Intake and Output: 10/10/17 10/10/17 06:59 18:59 Intake Total 539.2 1974.8 Output Total 725 1850 Balance -185.8 124.8 - Medications Medications: Current Medications Aspirin (Ecotrin) 81 mg PO DAILY [facility] Last Admin: 10/10/17 10:00 Dose: 81 mg Heparin Sodium/Sodium Chloride (Heparin 81688 Units/250ml 1/2 Normal Saline) 25 ,000 units in 250 mls @ 10.362 mls/hr IV .Q24H PRN; Protocol; 11 UNITS/KG/HR PRN Reason: PROTOCOL Last Titration: 10/10/17 16:00 Dose: 11 units/kg/hr, 10.362 mls/hr Insulin Aspart (Novolog) 0 unit SC ACHS [facility] PRN Reason: Protocol Last Admin: 10/10/17 14:40 Dose: 2 unit Metoprolol Tartrate (Lopressor) 25 mg PO BID [facility] Last Admin: 10/10/17 17:38 Dose: 25 mg Nitroglycerin (Nitrostat Sl Tab) 0.4 mg SL Q5M PRN PRN Reason: chest pain Last Admin: 10/10/17 17:25 Dose: 0.4 mg Pantoprazole Sodium (Protonix Ec Tab) 40 mg PO DAILY [facility] Last Admin: 10/10/17 11:05 Dose: 40 mg Rosuvastatin Calcium (Crestor) 5 mg PO HS [facility] Last Admin: 10/09/17 21:26 Dose: 5 mg - Labs Labs: 10/10/17 05:59 10/10/17 06:02 PT 10.9 SECONDS (9.7-12.2) 10/09/17 03:29 INR 1.0 10/09/17 03:29 APTT 51 SECONDS (21-34) H D 10/10/17 11:23 - Constitutional Appears: Non-toxic - Head Exam Head Exam: NORMAL INSPECTION - Eye Exam Eye Exam: Normal appearance - ENT Exam ENT Exam: Mucous Membranes Moist - Neck Exam Neck Exam: Full ROM - Respiratory Exam Respiratory Exam: NORMAL BREATHING PATTERN - Cardiovascular Exam Cardiovascular Exam: REGULAR RHYTHM - GI/Abdominal Exam GI & Abdominal Exam: Normal Bowel Sounds - Rectal Exam Rectal Exam: Deferred - Extremities Exam Extremities Exam: absent: Pedal Edema - Back Exam Back Exam: NORMAL INSPECTION - Neurological Exam Neurological Exam: Alert - Psychiatric Exam Psychiatric exam: Normal Affect - Skin Skin Exam: Normal Color Assessment and Plan (1) CHF (congestive heart failure) Assessment & Plan: acute on chronic diastolic dsyfunction. I reviewed the echocardiogram with the patient. recommend additional blood pressure control. Status: Acute (2) CAD (coronary artery disease) Assessment & Plan: antiplatelet therapy Status: Acute (3) Atrial fibrillation Status: Chronic (4) Hypertension, benign Assessment & Plan: add Norvasc Status: Acute
--- NOTE | 2017-10-11 06:58 | CP.PCM.PN ---
Subjective - Date & Time of Evaluation Date of Evaluation: 10/11/17 Time of Evaluation: 06:55 - Subjective Subjective: PGY-[address] Guajardo's Service: Pt seen and examined at bedside. Nursing reports no acute events overnight. Patient found lying in bed on Bipap. Denies chest pain, or palpitations. Objective - Vital Signs/Intake and Output Vital Signs (last 24 hours): Temp Pulse Resp BP Pulse Ox 98.2 F 75 29 H 143/57 L 96 10/11/17 05:00 10/11/17 05:19 10/11/17 05:19 10/11/17 05:19 10/11/17 05:00 Intake and Output: 10/10/17 10/11/17 18:59 06:59 Intake Total 1974.8 564.4 Output Total 1850 650 Balance 124.8 -85.6 - Medications Medications: Current Medications Amlodipine Besylate (Norvasc) 10 mg PO DAILY [facility] Last Admin: 10/10/17 19:39 Dose: 10 mg Aspirin (Ecotrin) 81 mg PO DAILY [facility] Last Admin: 10/10/17 10:00 Dose: 81 mg Heparin Sodium/Sodium Chloride (Heparin 03094 Units/250ml 1/2 Normal Saline) 25 ,000 units in 250 mls @ 10.362 mls/hr IV .Q24H PRN; Protocol; 11 UNITS/KG/HR PRN Reason: PROTOCOL Last Titration: 10/10/17 16:00 Dose: 11 units/kg/hr, 10.362 mls/hr Insulin Aspart (Novolog) 0 unit SC ACHS [facility] PRN Reason: Protocol Last Admin: 10/10/17 22:09 Dose: Not Given Metoprolol Tartrate (Lopressor) 25 mg PO BID [facility] Last Admin: 10/10/17 17:38 Dose: 25 mg Nitroglycerin (Nitrostat Sl Tab) 0.4 mg SL Q5M PRN PRN Reason: chest pain Last Admin: 10/10/17 17:25 Dose: 0.4 mg Pantoprazole Sodium (Protonix Ec Tab) 40 mg PO DAILY [facility] Last Admin: 10/10/17 11:05 Dose: 40 mg Rosuvastatin Calcium (Crestor) 5 mg PO HS [facility] Last Admin: 10/10/17 22:12 Dose: 5 mg - Labs Labs: 10/10/17 05:59 10/10/17 06:02 PT 10.9 SECONDS (9.7-12.2) 10/09/17 03:29 INR 1.0 10/09/17 03:29 APTT 51 SECONDS (21-34) H D 10/10/17 11:23 - Constitutional Appears: No Acute Distress - Head Exam Head Exam: ATRAUMATIC, NORMAL INSPECTION - Eye Exam Eye Exam: EOMI. absent: Scleral icterus Pupil Exam: PERRL - ENT Exam ENT Exam: Mucous Membranes Moist - Respiratory Exam Respiratory Exam: Decreased Breath Sounds, NORMAL BREATHING PATTERN. absent: Rales, Wheezes - Cardiovascular Exam Cardiovascular Exam: REGULAR RHYTHM, +S1, +S2 - GI/Abdominal Exam GI & Abdominal Exam: Soft, Normal Bowel Sounds. absent: Tenderness - Extremities Exam Extremities Exam: Normal Inspection. absent: Pedal Edema - Back Exam Back Exam: absent: CVA tenderness (L), CVA tenderness (R) - Neurological Exam Neurological Exam: Alert, Awake, Oriented x3 - Psychiatric Exam Psychiatric exam: Normal Affect, Normal Mood - Skin Skin Exam: Normal Color, Warm Assessment and Plan - Assessment and Plan (Free Text) Plan: NSTEMI CAD s/p stent RCA Troponin elevated (<0.012, 0.7580, 0.9320) ECHO (10/09): 55% EF, Mild Pulm HTN, Grade II abnormal relaxation pattern. Mild pulm HTN. EKG (10/09): Atrial Fibriliation Dr Turk consulted, Cardiology - no plan for cardiac cath - d/c heparin, will need outpatient stress test ASA 81mg PO Daily Lopressor 25mg PO BID NTG PRN CHF (acute on chronic HFpEF) ECHO (10/09): 55% EF, Mild Pulm HTN, Grade II abnormal relaxation pattern. Mild pulm HTN. Lopressor 25mg PO BID PAD w left BKA ASA 81mg PO Daily Atrial fibrillation Rate controlled Heparin drip D/C T2DM A1c: 6.4 Accuchecks ISS DOROTHY Improving Cr now 1.5, from 1.7 on admission HTN Well-controlled Norvasc 10mg PO Daily Lopressor 25mg PO BID Hyperlipidemia Crestor 5mg PO HS Prophylaxis Protonix 40mg PO Daily SCDs Heparin 5000u Q8H Miguelangel Rooney PGY-[address] Guajardo
[2017-10-11 07:17] LABS: BASO # 0.1 K/uL (0.0-0.2); BASO % 0.9 % (0.0-2.0); EOS # 0.2 K/uL (0.0-0.7); HEMOGLOBIN 8.6 g/dL (12.0-18.0); LYMPH # 1.8 K/uL (1.0-4.3); LYMPH % 29.6 % (20.0-40.0); MEAN CELL VOLUME 86.6 fL (80.0-94.0); MEAN CORPUSCULAR HEMOGLOBIN 28.4 pg (27.0-31.0); MEAN CORPUSCULAR HGB CONC 32.8 g/dL (33.0-37.0); MEAN PLATELET VOLUME 7.8 fL (7.2-11.7); MONO # 0.5 K/uL (0.0-0.8); MONO % 8.7 % (0.0-10.0); NEUT # 3.5 K/uL (1.8-7.0); NEUT % 56.8 % (50.0-75.0); NRBC % 0.1 % (0.0-2.0); RBC 3.03 Mil/uL (4.40-5.90); RED CELL DISTRIBUTION WIDTH 14.6 % (11.5-14.5); WHITE BLOOD COUNT 6.1 K/uL (4.8-10.8)
--- NOTE | 2017-10-11 07:28 | CP.PCM.PN ---
Subjective - Date & Time of Evaluation Date of Evaluation: 10/11/17 Time of Evaluation: 07:00 - Subjective Subjective: seen this a,m. less dyspnea. blood pressure is imrpoved. Objective - Vital Signs/Intake and Output Vital Signs (last 24 hours): Temp Pulse Resp BP Pulse Ox 98.2 F 75 29 H 143/57 L 96 10/11/17 05:00 10/11/17 05:19 10/11/17 05:19 10/11/17 05:19 10/11/17 05:00 Intake and Output: 10/11/17 10/11/17 06:59 18:59 Intake Total 564.4 Output Total 650 Balance -85.6 - Medications Medications: Current Medications Amlodipine Besylate (Norvasc) 10 mg PO DAILY [facility] Last Admin: 10/10/17 19:39 Dose: 10 mg Aspirin (Ecotrin) 81 mg PO DAILY [facility] Last Admin: 10/10/17 10:00 Dose: 81 mg Heparin Sodium/Sodium Chloride (Heparin 70339 Units/250ml 1/2 Normal Saline) 25 ,000 units in 250 mls @ 10.362 mls/hr IV .Q24H PRN; Protocol; 11 UNITS/KG/HR PRN Reason: PROTOCOL Last Titration: 10/10/17 16:00 Dose: 11 units/kg/hr, 10.362 mls/hr Insulin Aspart (Novolog) 0 unit SC ACHS [facility] PRN Reason: Protocol Last Admin: 10/10/17 22:09 Dose: Not Given Metoprolol Tartrate (Lopressor) 25 mg PO BID [facility] Last Admin: 10/10/17 17:38 Dose: 25 mg Nitroglycerin (Nitrostat Sl Tab) 0.4 mg SL Q5M PRN PRN Reason: chest pain Last Admin: 10/10/17 17:25 Dose: 0.4 mg Pantoprazole Sodium (Protonix Ec Tab) 40 mg PO DAILY [facility] Last Admin: 10/10/17 11:05 Dose: 40 mg Rosuvastatin Calcium (Crestor) 5 mg PO HS [facility] Last Admin: 10/10/17 22:12 Dose: 5 mg - Labs Labs: 10/11/17 07:04 10/10/17 06:02 PT 10.9 SECONDS (9.7-12.2) 10/09/17 03:29 INR 1.0 10/09/17 03:29 APTT 35 SECONDS (21-34) H D 10/11/17 07:04 - Constitutional Appears: Non-toxic - Head Exam Head Exam: NORMAL INSPECTION - Eye Exam Eye Exam: Normal appearance - Neck Exam Neck Exam: Full ROM - Respiratory Exam Respiratory Exam: Decreased Breath Sounds - Cardiovascular Exam Cardiovascular Exam: REGULAR RHYTHM - GI/Abdominal Exam GI & Abdominal Exam: Normal Bowel Sounds - Rectal Exam Rectal Exam: Deferred - Back Exam Back Exam: NORMAL INSPECTION - Neurological Exam Neurological Exam: Alert - Psychiatric Exam Psychiatric exam: Normal Affect - Skin Skin Exam: Normal Color Assessment and Plan (1) CHF (congestive heart failure) Assessment & Plan: diatolic dysfunction. medical therapy and blood pressure control Status: Acute (2) CAD (coronary artery disease) Assessment & Plan: antiplatelet therapy. d/c heparin. outpatient stress test Status: Acute (3) Atrial fibrillation Status: Chronic (4) Hypertension, benign Assessment & Plan: improved. medical therapy Status: Acute
[2017-10-11] MEDS: (Novolog) Insulin Aspart, Recombinant 100 u/ml 10 ml vial SC SCH ×3 (07:30→18:14)
[2017-10-11 07:44] LABS: ALB/GLOB RATIO 1.1 (1.0-2.1); ALBUMIN 3.7 g/dL (3.5-5.0); CALCIUM 8.5 mg/dl (8.6-10.4)
[2017-10-11] MEDS: Pantoprazole 40 mg EC Tab PO SCH (10:49)
--- NOTE | 2017-10-11 13:03 | CP.PCM.PN ---
Subjective - Date & Time of Evaluation Date of Evaluation: 10/11/17 Time of Evaluation: 12:58 - Subjective Subjective: Patient notes his spleeping is better. saturating 93-94 when on room air Objective - Vital Signs/Intake and Output Vital Signs (last 24 hours): Temp Pulse Resp BP Pulse Ox 98.5 F 88 25 H 128/56 L 99 10/11/17 09:00 10/11/17 12:19 10/11/17 06:19 10/11/17 12:19 10/11/17 12:19 Intake and Output: 10/11/17 10/11/17 06:59 18:59 Intake Total 574.8 1170 Output Total 650 700 Balance -75.2 470 - Medications Medications: Current Medications Amlodipine Besylate (Norvasc) 10 mg PO DAILY [facility] Last Admin: 10/11/17 10:54 Dose: 10 mg Aspirin (Ecotrin) 81 mg PO DAILY [facility] Last Admin: 10/11/17 10:50 Dose: 81 mg Heparin Sodium/Sodium Chloride (Heparin 75649 Units/250ml 1/2 Normal Saline) 25 ,000 units in 250 mls @ 10.362 mls/hr IV .Q24H PRN; Protocol; 11 UNITS/KG/HR PRN Reason: PROTOCOL Last Titration: 10/11/17 07:00 Dose: 0 units/kg/hr, 0 mls/hr Insulin Aspart (Novolog) 0 unit SC ACHS [facility] PRN Reason: Protocol Last Admin: 10/11/17 07:30 Dose: Not Given Metoprolol Tartrate (Lopressor) 25 mg PO BID [facility] Last Admin: 10/11/17 10:50 Dose: 25 mg Nitroglycerin (Nitrostat Sl Tab) 0.4 mg SL Q5M PRN PRN Reason: chest pain Last Admin: 10/10/17 17:25 Dose: 0.4 mg Pantoprazole Sodium (Protonix Ec Tab) 40 mg PO DAILY [facility] Last Admin: 10/11/17 10:49 Dose: 40 mg Rosuvastatin Calcium (Crestor) 5 mg PO HS [facility] Last Admin: 10/10/17 22:12 Dose: 5 mg - Labs Labs: 10/11/17 07:04 10/11/17 07:01 PT 10.9 SECONDS (9.7-12.2) 10/09/17 03:29 INR 1.0 10/09/17 03:29 APTT 35 SECONDS (21-34) H D 10/11/17 07:04 Assessment and Plan - Assessment and Plan (Free Text) Assessment: Patient seen and examined at bedside. Patient with h/o DM, CAD and COPD presents to [facility] with c/o SOB, pulmonary edema and CKD/DOROTHY. -NSTEMI/A-flutter:COMPLETED 48 hours of iv heparin, continue oral medications as per cardiology, request cardiology to determine AC for A-flutter -Hypercapneic respiratory failure/Pulmonary congestion:continue negative balance with lasix and bi-pap PRN/qHS -CKD/DOROTHY:avoid nephrotoxic drugs, monitor -Diabetes: HBA1c 6.4, suspect post prandial, continue insulin sliding scale, consider endocrine consult -dvt ppx hepairn pud ppx protonix Patient remains hemodynamically stable. d/w nursing
[2017-10-11 16:56] VITALS: BP 149/72; RESP 20; TEMP 98.2; O2SAT 98
[2017-10-11 19:58] VITALS: PULSE 86
--- NOTE | 2017-10-11 22:55 | CP.PCM.DIS ---
Provider - Provider Date of Admission: 10/09/17 04:38 Attending physician: Vincent Guajardo Jr, MD Time Spent in preparation of Discharge (in minutes): 30 Hospital Course - Lab Results Lab Results: Micro Results 10/09/17 11:37 Blood Blood Culture - Preliminary NO GROWTH AFTER 48 HOURS 10/09/17 11:37 Blood Blood Culture - Preliminary NO GROWTH AFTER 48 HOURS 10/09/17 06:29 Naris MRSA Culture (Admit) - Final MRSA NOT DETECTED Most Recent Lab Values WBC 6.1 K/uL (4.8-10.8) 10/11/17 07:04 RBC 3.03 Mil/uL (4.40-5.90) L 10/11/17 07:04 Hgb 8.6 g/dL (12.0-18.0) L 10/11/17 07:04 Hct 26.3 % (35.0-51.0) L 10/11/17 07:04 MCV 86.6 fL (80.0-94.0) 10/11/17 07:04 MCH 28.4 pg (27.0-31.0) 10/11/17 07:04 MCHC 32.8 g/dL (33.0-37.0) L 10/11/17 07:04 RDW 14.6 % (11.5-14.5) H 10/11/17 07:04 Plt Count 197 K/uL (130-400) 10/11/17 07:04 MPV 7.8 fL (7.2-11.7) 10/11/17 07:04 Neut % (Auto) 56.8 % (50.0-75.0) 10/11/17 07:04 Lymph % (Auto) 29.6 % (20.0-40.0) 10/11/17 07:04 Ritchie % (Auto) 8.7 % (0.0-10.0) 10/11/17 07:04 Eos % (Auto) 4.0 % (0.0-4.0) 10/11/17 07:04 Baso % (Auto) 0.9 % (0.0-2.0) 10/11/17 07:04 Neut # (Auto) 3.5 K/uL (1.8-7.0) 10/11/17 07:04 Lymph # (Auto) 1.8 K/uL (1.0-4.3) 10/11/17 07:04 Ritchie # (Auto) 0.5 K/uL (0.0-0.8) 10/11/17 07:04 Eos # (Auto) 0.2 K/uL (0.0-0.7) 10/11/17 07:04 Baso # (Auto) 0.1 K/uL (0.0-0.2) 10/11/17 07:04 PT 10.9 SECONDS (9.7-12.2) 10/09/17 03:29 INR 1.0 10/09/17 03:29 APTT 35 SECONDS (21-34) H D 10/11/17 07:04 Puncture Site Rb 10/09/17 05:38 pCO2 54 mm/Hg (35-45) H 10/09/17 05:38 pO2 78 mm/Hg (80-100) L 10/09/17 05:38 HCO3 19.6 mmol/L (21-28) L 10/09/17 05:38 ABG pH 7.20 (7.35-7.45) L 10/09/17 05:38 ABG Total CO2 22.8 mmol/L (22-28) 10/09/17 05:38 ABG O2 Saturation 95.8 % (95-98) 10/09/17 05:38 ABG Base Excess -6.8 mmol/L (-2.0-3.0) L 10/09/17 05:38 ABG Hemoglobin 9.1 g/dL (11.7-17.4) L 10/09/17 05:38 ABG Carboxyhemoglobin 1.0 % (0.5-1.5) 10/09/17 05:38 POC ABG HHb (Measured) 4.1 % (0.0-5.0) 10/09/17 05:38 ABG Methemoglobin 0.8 % (0.0-3.0) 10/09/17 05:38 Tong Test Na 10/09/17 05:38 ABG Potassium 5.0 mmol/L (3.6-5.2) 10/09/17 03:30 A-a O2 Difference 211.0 mm/Hg 10/09/17 05:38 Respiratory Index 2.7 10/09/17 05:38 Hgb O2 Saturation 94.1 % (95.0-98.0) L 10/09/17 05:38 Sodium 141.0 mmol/l (132-148) 10/09/17 03:30 Chloride 110.0 mmol/L (98-107) H 10/09/17 03:30 Glucose 336 mg/dl (75-110) H 10/09/17 03:30 Lactate 0.7 mmol/L (0.7-2.1) 10/09/17 03:30 Vent Mode Bipap 10/09/17 05:38 Mechanical Rate 18 10/09/17 03:30 FiO2 50.0 % 10/09/17 05:38 Inspiratory BiPAP 14 10/09/17 05:38 Expiratory BiPAP 7 10/09/17 05:38 Crit Value Called To Dr colin 10/09/17 03:30 Crit Value Called By Delilah villa 10/09/17 03:30 Crit Value Read Back Y 10/09/17 03:30 Blood Gas Notified Time 347 10/09/17 03:30 Sodium 142 mmol/L (132-148) 10/11/17 07:01 Potassium 4.8 mmol/L (3.6-5.2) 10/11/17 07:01 Chloride 109 mmol/L (98-107) H 10/11/17 07:01 Carbon Dioxide 24 mmol/L (22-30) 10/11/17 07:01 Anion Gap 14 (10-20) 10/11/17 07:01 BUN 31 mg/dL (9-20) H 10/11/17 07:01 Creatinine 1.5 mg/dL (0.8-1.5) 10/11/17 07:01 Est GFR ( Amer) 57 10/11/17 07:01 Est GFR (Non-Af Amer) 47 10/11/17 07:01 POC Glucose (mg/dL) 112 mg/dL (65-110) H 10/11/17 16:52 Random Glucose 101 mg/dL (75-110) 10/11/17 07:01 Hemoglobin A1c 6.4 % (4.2-6.5) 10/10/17 05:59 Calcium 8.5 mg/dl (8.6-10.4) L 10/11/17 07:01 Phosphorus 4.7 mg/dL (2.5-4.5) H 10/11/17 07:01 Magnesium 2.0 mg/dL (1.6-2.3) 10/11/17 07:01 Total Bilirubin 0.6 mg/dL (0.2-1.3) 10/11/17 07:01 AST 23 U/L (17-59) 10/11/17 07:01 ALT 19 U/L (21-72) L 10/11/17 07:01 Alkaline Phosphatase 99 U/L (38-126) 10/11/17 07:01 Total Creatine Kinase 318 U/L (55-170) H 10/09/17 11:37 CK-MB (Mass) 3.45 ng/mL (0.0-3.38) H 10/09/17 11:37 Troponin I 0.9320 ng/mL (0.00-0.120) H* 10/09/17 20:44 NT-Pro-B Natriuret Pep 1840 pg/mL (0-900) H 10/09/17 03:29 Total Protein 7.0 g/dL (6.3-8.3) 10/11/17 07:01 Albumin 3.7 g/dL (3.5-5.0) 10/11/17 07:01 Globulin 3.3 gm/dL (2.2-3.9) 10/11/17 07:01 Albumin/Globulin Ratio 1.1 (1.0-2.1) 10/11/17 07:01 Triglycerides 148 mg/dL (0-149) D 10/09/17 11:37 Cholesterol 96 mg/dL (0-199) 10/09/17 11:37 LDL Cholesterol Direct < 30 mg/dL (0-129) 10/09/17 11:37 HDL Cholesterol 29 mg/dL (30-70) L 10/09/17 11:37 TSH 3rd Generation 2.61 mIU/L (0.46-4.68) 10/09/17 06:28 Arterial Blood Potassium 5.0 mmol/L (3.6-5.2) 10/09/17 03:30 Urine Color Straw (YELLOW) 10/09/17 03:15 Urine Clarity Clear (Clear) 10/09/17 03:15 Urine pH 5.0 (5.0-8.0) 10/09/17 03:15 Ur Specific [place] 1.012 (1.003-1.030) 10/09/17 03:15 Urine Protein 3+ mg/dL (NEGATIVE) H 10/09/17 03:15 Urine Glucose (UA) 2+ mg/dL (Normal) H 10/09/17 03:15 Urine Ketones Negative mg/dL (NEGATIVE) 10/09/17 03:15 Urine Blood Negative (NEGATIVE) 10/09/17 03:15 Urine Nitrate Negative (NEGATIVE) 10/09/17 03:15 Urine Bilirubin Negative (NEGATIVE) 10/09/17 03:15 Urine Urobilinogen Normal mg/dL (0.2-1.0) 10/09/17 03:15 Ur Leukocyte Esterase Neg Corina/uL (Negative) 10/09/17 03:15 Urine WBC (Auto) < 1 /hpf (0-5) 10/09/17 03:15 Urine RBC (Auto) 1 /hpf (0-3) 10/09/17 03:15 Ur Squamous Epith Cells < 1 /hpf (0-5) 10/09/17 03:15 Hyaline Casts 3-5 /lpf (0-2) H 10/09/17 03:15 Influenza Typ A,B (EIA) Negative for flu a/b (NEGATIVE) 10/09/17 11:37 Blood Type O POSITIVE 10/09/17 03:21 Antibody Screen Negative 10/09/17 03:21 - Hospital Course Hospital Course: H&P: 62 year old male with past medical history of DM, CAD, HTN, HLD, a fib presented to hospital for shortness of breath and mild chest discomfort that has been ongoing for about 1 week. Patient complains of a productive cough with greenish sputum and subjective F/C. Patient states chest discomfort began yesterday when he was walking and dissipated after resting. Denied having any abd pain, N/V/D/C, LE swelling. On admission, ABG showed respiratory acidosis with pH of 7.11. Patient was placed on BiPAP for respiratory distress and was admitted to ICU. PMhx: stated above Sx: Left BKA Social: former smoker, denies ETOH or drug use Meds: [facility] Hospital Course: Patient was admitted to the ICU on 10/09/17 for an NSTEMI. Troponin elevated (< 0.012, 0.7580, 0.9320) and EKG showed atrial fibrillation. Cardiology Dr. Turk was consulted. ECHO (10/09): 55% EF, Mild Pulm HTN, Grade II abnormal relaxation pattern. Mild pulm HTN. Patient was transferred out of ICU to the tele floors for observation. Dr. Turk recommends stress test done as an outpatient. Patient continued home medications. Patient wanted to leave against medical advice. Patient refused to sign the form and eloped. This is a summary of the patient's hospital course, please refer to full EMR for further details. Discharge Exam - Head Exam Head Exam: ATRAUMATIC, NORMAL INSPECTION Discharge Plan - Follow Up Plan Condition: CRITICAL Disposition: AGAINST MEDICAL ADVICE
--- NOTE | 2017-10-14 15:30 | CARD ---
APPROVED REPORT EKG Measurement Heart [id number] <Conclusion> Atrial fibrillation Abnormal ECG
== END 2017-10-11 22:43 | disposition left against medical advice (07) | DRG 280 ==
LOC: C.ER 03:08 → C.9I 04:38 → C.6T 10-11 14:12
PROVIDERS: ADMIT Internal Medicine; ATTEND Internal Medicine
PROC: 5A1945Z Respiratory Ventilation, 24-96 Consecutive Hours (ICD-10-PCS; principal; 2017-10-09)
DX: I21.4 Non-ST elevation (NSTEMI) myocardial infarction (principal); J96.02 Acute respiratory failure with hypercapnia; E87.2 Acidosis; I48.92 Unspecified atrial flutter; N17.9 Acute kidney failure, unspecified; I11.0 Hypertensive heart disease with heart failure; E78.5 Hyperlipidemia, unspecified; I25.10 Atherosclerotic heart disease of native coronary artery without angina pectoris; I27.20 Pulmonary hypertension, unspecified; I50.9 Heart failure, unspecified; J44.9 Chronic obstructive pulmonary disease, unspecified; I48.91 Unspecified atrial fibrillation; E11.65 Type 2 diabetes mellitus with hyperglycemia; Z79.84 Long term (current) use of oral hypoglycemic drugs; Z87.891 Personal history of nicotine dependence; Z89.512 Acquired absence of left leg below knee; Z95.5 Presence of coronary angioplasty implant and graft